=== PATIENT | female | born 1950 | race Caucasian/White ===

== ENCOUNTER 2023-04-08 18:23 | Inpatient (IN) ==
--- NOTE | 2023-04-08 18:30 | ED Triage Note ---
Date of Service April 08, 2023 History of Present Illness This patient was briefly evaluated while in triage. An abbreviated physical exam was performed. This patient is a 73-year-old Female who presents to the ED for evaluation of left arm pain, specifically She notes here hand felt achy and tingling. She couldnt bend L wrist back. She notes L hand and wrist edema as of earlier today. Tingling and pain much worse. Ascends to her elbow. Physical Exam GENERAL: 73 year old female. In no acute distress. SKIN: No lesions or rashes. Edema of L hand noted. HEART: Regular rate and rhythm. LUNGS: Clear to auscultation. NEURO: Alert and oriented. No deficits. MUSCULOSKELETAL: No deformities to inspection of the extremities. L hand pain and edema. PSYCH: Patient is pleasant and answers all questions appropriately. Initial orders for labs and / or imaging were placed and patient was placed in the waiting area until a bed is available. Please see further documentation for the full ED course.
[2023-04-08] MEDS ORDERED: ONDANSETRON INJ 2 MG/ML 2 ML VIAL IV STA (19:02)
--- NOTE | 2023-04-08 19:05 | XRay Report ---
XR hand LT min 3V routine, XR wrist LT min 3V routine CLINICAL HISTORY: L hand and wrist pain and edema COMPARISON STUDY: None. FINDINGS: No acute fracture or dislocation within the left hand or left wrist. There are mild degener ative changes within the left hand and wrist. Diffuse soft tissue swelling within the left hand. A 1 cm lobular focus of calcification along the volar aspect of the left wrist. This is likely chronic. IMPRESSION: 1. No fracture or dislocation within the left hand or left wrist. 2. Soft tissue swelling/edema within the left hand. 3. Mild degenerative changes within the left hand and wrist. 4. A focus of calcification at the volar aspect of the wrist is likely chronic. ACT 112: Negative or not required by law. Electronically signed by: Chavo Weldon M.D. 04/08/2023 7:02 PM
[2023-04-08 19:22] LABS: Basophils # (auto) 0.09 K/uL (0-0.2); Basophils % (auto) 0.7 %; Eosinophils % (auto) 0.8 %; Hematocrit (blood only) 40.1 % (37.0-47.0); Hemoglobin 13.4 g/dl (12.0-16.0); Immature Granulocytes # (auto) 0.05 K/uL (0.01-0.20); Immature Granulocytes % (auto) 0.4 %; Lymphocytes # (auto) 2.67 K/uL (1.2-3.4); Lymphocytes % (auto) 21.1 %; Mean Corpuscular Hemoglobin 30.9 pg (25.0-34.0); Mean Corpuscular Hgb Conc 33.4 g/dL (32.0-36.0); Mean Corpuscular Volume 92.6 fL (80.0-100.0); Mean Platelet Volume 9.5 fL (9.4-12.4); Monocytes # (auto) 1.04 K/uL (0.11-0.59); Monocytes % (auto) 8.2 %; Neutrophils # (auto) 8.72 K/uL (1.40-6.50); Neutrophils % (auto) 68.8 %; Platelet Count 286 K/uL (130-400); RDW Coefficient of Variation 12.5 % (11.5-14.5); RDW Standard Deviation 42.8 fL (36.4-46.3); Red Blood Count 4.33 M/uL (4.20-5.40); White Blood Count 12.67 K/ul (4.8-10.8)
--- NOTE | 2023-04-08 19:23 | Emergency Department Note ---
Impression & Plan Complex regional pain syndrome i of left upper limb, Hand pain, left, Hand swelling ED Provider Note NAME: RITA SALMERON AGE: 73 SEX: F : 1950 ARRIVES VIA: Walk-In INFORMANT: Patient, ED PROVIDER(S): Seun Mariano MD CHIEF COMPLAINT: Hand pain MEDICAL DECISION MAKING: Patient presents due to concern for left hand pain. The patient is right-hand dominant. Next IV was established blood obtained. The patient was ordered IV fentanyl Toradol and methylprednisolone as well as Tylenol and an ice pack. The patient was fairly adamant about today about obtaining a DVT ultrasound of the patient does not have any swelling beyond the left hand. The patient has good radial pulse. Believe DVT to be less likely but a DVT ultrasound had been ordered through triage. The patient's blood work shows a white count of 12 with a normal H&H and platelet count. The patient does not have evidence of cellulitis or abscess. The patient does not have flexor tenosynovitis. Patient did not have improvement in her symptoms with the prior pain medication. There may be a CRPS component the patient was trialed on capsaicin and gabapentin. This did not significantly improve her symptoms. Patient DVT ultrasound is negative. The patient was concerned given her arm pain and about atypical chest pain but the patient has no chest pains or shortness of breath. EKG and troponin were added. EKG nonischemic. Patient still had persistent pain so I did speak the on-call hospital service Dr. Farley and the patient was admitted to the medicine service. Patient will be admitted for further work-up and treatment. Prior /Outside records reviewed: I did review a primary care visit from March 06, 2023. Patient was treated for allergic conjunctivitis and acute rhinosinusitis. Recommended Flonase and Pataday. Differential diagnosis: Cellulitis, abscess, complex regional pain syndrome, gout, pseudogout, tenosynovitis, tendinitis, arthritis among others were considered Diagnostics, as interpreted by me: ECG: Normal sinus rhythm, rate of 72, normal intervals, normal axis no ST elevations, T wave version in V2 Cardiac monitoring: An order was placed for continuous cardiac monitoring. The monitor shows a rate of 74 with sinus rhythm. Patient was placed on pulse oximetry Medical decision rules: Wells score Imaging studies: See below I informally reviewed the patient's hand x-ray which shows no obvious fracture. HPI: Patient presents due to concern for left hand pain. The patient states that she noticed this morning to where she has noticed some increasing pain and associated swelling. The patient denies any chest pain shortness of breath. The patient has had some associated nausea secondary to the pain. The patient does not take anything for symptoms at home. No recent surgeries procedures or hospitalizations. No left upper extremity surgeries. Patient denies any falls or trauma or overuse. The patient is right-hand dominant. PAST MEDICAL HISTORY: See Below PAST SURGICAL HISTORY: See Below SOCIAL HISTORY: See Below HOME MEDICATIONS: See Below ALLERGIES: See Below VITALS: See Below PHYSICAL EXAMINATION: GENERAL: NAD, wearing a mask, non-toxic. EYE EXAM: Normal conjunctiva. PERRL, no anisocoria and EOM's grossly intact w/o pain. NECK: Supple, no nuchal rigidity, no adenopathy, non-tender. No signs of meningismus. FROM of the neck with good chin to chest and neck extension. No stridor. LUNGS: Clear to auscultation. Normal chest wall mechanics. HEART: NSR, no MRG. ABDOMEN: Abdomen soft, non-tender, no masses, no rebound or guarding. BACK: No CVA TTP. SKIN: No rashes and no bruising. UPPER EXTREMITIES: Mild swelling to the left hand and fingers, decreased range of motion secondary to pain, sensate. No swelling more proximally and no significant TTP to the left wrist. LOWER EXTREMITIES: Grossly normal, no edema. NEURO EXAM: A&O x3, cranial nerves II-XII grossly intact, normal speech, moves all 4 extremities. Past Med/Surg History Medical History History of asthma Varicose veins of both lower extremities without ulcer or inflammation Surgical History H/O section 1971, 1975 H/O laparoscopy H/O tubal ligation left leg, 1991 H/O varicose vein ligation Hx of cholecystectomy 2003 Family History Mother Pancreatic cancer Gallbladder disease Kidney disease Father Cardiac disorder Myocardial infarction Brother Malignant neoplasm of brain Denies family history of Ovarian cancer Prostate cancer Breast cancer Colorectal cancer Social History Smoking Status: Never smoker Second Hand Exposure: No; Do You Dip or Chew Tobacco: No; Hx Alcohol Use: Yes Alcohol type: wine Alcohol Intake Frequency: Monthly or Less Alcohol Intake Frequency Comment: social Hx Substance Use: No Preferred Language: German Communication Ability: Effective Visual Impairment: Limited Hearing Ability: Normal 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 Off Required: No marital status: Current Living Situation: Family Current Living Situation Comment: daughter current occupational status: retired current occupation: previously worked in [employer] How many Children do You have: 2 Feels Safe at Home: Yes Childhood Exposure to Second-Hand Smoke: Yes caffeine: Yes (coffee and sometimes tea ) Dental Care, Regularly: Yes Physical Activity Frequency: 5-6 Times per Week Seatbelt Use: always Sunscreen Use: Yes Allergies Allergies Allergy/AdvReac Type Severity Reaction Status Date / Time animal dander Allergy Verified 03/06/23 11:46 codeine Allergy Verified 03/06/23 11:46 house dust Allergy Verified 03/06/23 11:46 mold Allergy Verified 03/06/23 11:46 tree and shrub pollen Allergy Verified 03/06/23 11:46 Home Meds Home Medications Medication Instructions Recorded Confirmed loratadine 10 mg capsule 10 mg PO DAILY PRN Allergy Symptoms 04/06/19 04/08/23 cranberry 500 mg capsule 500 mg PO DAILY 05/04/21 04/08/23 omega-3 fatty acids 500 mg capsule 500 mg PO DAILY 09/05/22 04/08/23 atorvastatin 10 mg tablet 10 mg PO DAILY 04/08/23 04/08/23 multivitamin (Multiple Vitamins 1 tab PO DAILY 04/08/23 04/08/23 tablet) Previous Rx's Medication Instructions Recorded lisinopril 20 mg tablet 20 mg PO DAILY #90 tabs 04/09/22 albuterol sulfate 90 mcg/actuation 2 puff inhalation Q6H PRN 09/05/22 aerosol inhaler shortness of breath or wheezing #6.7 grams fluticasone propionate 50 2 spray intranasal DAILY #16 grams 02/27/23 mcg/actuation nasal spray,suspension (Flonase Allergy Relief) olopatadine 0.2 % eye drops 1 drp ophthalmic (eye) QAM #2.5 mL 02/27/23 (Pataday Once Daily Relief) Results & Data (ED) Vital Signs Vital Signs - 24 hr 04/08/23 18:25 04/08/23 22:49 04/08/23 20:23 Temperature 36.4 C L Temperature Source Temporal Artery Scan Pulse Rate 86 77 Pulse Rate [Apical] 75 Respiratory Rate 15 18 Respiratory Effort / Characteristics Respiratory Depth Normal Respiratory Pattern Blood Pressure 206/136 H Blood Pressure [Right Arm] 181/95 H Blood Pressure Mean 159 Blood Pressure Mean [Right Arm] 123 Blood Pressure Position [Right Arm] Pulse Oximetry 95 94 Oxygen Delivery Method Room Air Room Air Sepsis Recent Fever Within 48 Hours No Sepsis New/Unexplained Change in Mental Status No Sepsis Action Taken by Nursing No Action Required 04/08/23 23:27 04/09/23 00:23 Temperature Temperature Source Pulse Rate 77 Pulse Rate [Apical] 79 Respiratory Rate 20 Respiratory Effort / Characteristics Non-Labored Spontaneous Respiratory Depth Normal Respiratory Pattern Regular Blood Pressure Blood Pressure [Right Arm] 180/99 H Blood Pressure Mean Blood Pressure Mean [Right Arm] 126 Blood Pressure Position [Right Arm] Semi-fowlers Pulse Oximetry 96 Oxygen Delivery Method Room Air Sepsis Recent Fever Within 48 Hours Sepsis New/Unexplained Change in Mental Status Sepsis Action Taken by Snf Medications Current Medication List: was personally reviewed by me Laboratory Data Attestation: I reviewed the patient's lab results. 04/08/23 Unknown 04/08/23 Unknown Lab Results 04/08/23 04/08/23 04/08/23 Range/Units Unknown Unknown Unknown WBC 12.67 H (4.8-10.8) K/ul RBC 4.33 (4.20-5.40) M/uL Hgb 13.4 (12.0-16.0) g/dl Hct 40.1 (37.0-47.0) % MCV 92.6 (80.0-100.0) fL MCH 30.9 (25.0-34.0) pg MCHC 33.4 (32.0-36.0) g/dL RDW Std Deviation 42.8 (36.4-46.3) fL RDW Coeff of Yaw 12.5 (11.5-14.5) % Plt Count 286 (130-400) K/uL MPV 9.5 (9.4-12.4) fL Immature Gran % (Auto) 0.4 % Neut % (Auto) 68.8 % Lymph % (Auto) 21.1 % [place] % (Auto) 8.2 % Eos % (Auto) 0.8 % Baso % (Auto) 0.7 % Neut # (Auto) 8.72 H (1.40-6.50) K/uL Lymph # (Auto) 2.67 (1.2-3.4) K/uL [place] # (Auto) 1.04 H (0.11-0.59) K/uL Eos # (Auto) 0.10 (0-0.50) K/uL Baso # (Auto) 0.09 (0-0.2) K/uL Immature Gran # (Auto) 0.05 (0.01-0.20) K/uL PT 10.8 (9.0-12.0) Seconds INR 1.0 (0.9-1.1) APTT 25.3 (21.0-31.0) Seconds PTT Ratio 0.9 Sodium 138 (136-145) mmol/L Potassium 3.8 (3.5-5.1) mmol/L Chloride 105 (98-107) mmol/L Carbon Dioxide 25 (21-32) mmol/L Anion Gap 8 (3-11) BUN 29 H (6-23) mg/dl Creatinine 1.11 (0.6-1.2) mg/dl Est Cr Clr Drug Dosing 47.9 ml/min Est GFR ( Amer) 57.1 ml/min Est GFR (Non-Af Amer) 49.2 ml/min BUN/Creatinine Ratio 26.1 H (10-20) Glucose 179 H (70-99(Fasting)) mg/dl Calcium 9.1 (8.6-10.3) mg/dl Total Bilirubin 0.4 (0.2-1.0) mg/dl AST 23 (13-39) U/L ALT 21 (7-52) U/L Alkaline Phosphatase 63 (34-104) U/L Troponin I High Sens 6.1 (0-14) pg/ml Total Protein 7.1 (6.0-8.3) gm/dl Albumin 4.0 (3.4-5.0) gm/dl Globulin 3.1 (2.5-4.0) gm/dl Albumin/Globulin Ratio 1.3 (0.9-2) SARS-CoV-2, RNA, NAAT (NEGATIVE) 04/09/23 Range/Units 00:07 WBC (4.8-10.8) K/ul RBC (4.20-5.40) M/uL Hgb (12.0-16.0) g/dl Hct (37.0-47.0) % MCV (80.0-100.0) fL MCH (25.0-34.0) pg MCHC (32.0-36.0) g/dL RDW Std Deviation (36.4-46.3) fL RDW Coeff of Yaw (11.5-14.5) % Plt Count (130-400) K/uL MPV (9.4-12.4) fL Immature Gran % (Auto) % Neut % (Auto) % Lymph % (Auto) % Granville % (Auto) % Eos % (Auto) % Baso % (Auto) % Neut # (Auto) (1.40-6.50) K/uL Lymph # (Auto) (1.2-3.4) K/uL [place]ville # (Auto) (0.11-0.59) K/uL Eos # (Auto) (0-0.50) K/uL Baso # (Auto) (0-0.2) K/uL Immature Gran # (Auto) (0.01-0.20) K/uL PT (9.0-12.0) Seconds INR (0.9-1.1) APTT (21.0-31.0) Seconds PTT Ratio Sodium (136-145) mmol/L Potassium (3.5-5.1) mmol/L Chloride (98-107) mmol/L Carbon Dioxide (21-32) mmol/L Anion Gap (3-11) BUN (6-23) mg/dl Creatinine (0.6-1.2) mg/dl Est Cr Clr Drug Dosing ml/min Est GFR ( Amer) ml/min Est GFR (Non-Af Amer) ml/min BUN/Creatinine Ratio (10-20) Glucose (70-99(Fasting)) mg/dl Calcium (8.6-10.3) mg/dl Total Bilirubin (0.2-1.0) mg/dl AST (13-39) U/L ALT (7-52) U/L Alkaline Phosphatase (34-104) U/L Troponin I High Sens (0-14) pg/ml Total Protein (6.0-8.3) gm/dl Albumin (3.4-5.0) gm/dl Globulin (2.5-4.0) gm/dl Albumin/Globulin Ratio (0.9-2) SARS-CoV-2, RNA, NAAT NEGATIVE (NEGATIVE) Administered Medications Discontinued Medications Acetaminophen (Acetaminophen 500 Mg Tab) 1,000 mg PO NOW STA Stop: 04/08/23 19:31 Last Admin: 04/08/23 19:49 Dose: 1,000 mg Documented By: VADIM Capsaicin (Capsaicin Cr 0.075% 60 Gm Tube) 1 appln EXT NOW STA Stop: 04/08/23 21:00 Last Admin: 04/08/23 21:07 Dose: 1 appln Documented By: VADIM Fentanyl Citrate (Fentanyl Citrate Pf 100 Mcg/2 Ml Vial) 50 mcg IV NOW STA Stop: 04/08/23 19:31 Last Admin: 04/08/23 20:17 Dose: 50 mcg Documented By: TESSA Fentanyl Citrate (Fentanyl Citrate Pf 100 Mcg/2 Ml Vial) 50 mcg IV NOW STA Stop: 04/08/23 23:55 Last Admin: 04/09/23 00:03 Dose: 50 mcg Documented By: Gabapentin (Gabapentin 100 Mg Cap) 100 mg PO NOW STA Stop: 04/08/23 21:23 Last Admin: 04/08/23 22:08 Dose: 100 mg Documented By: VADIM Ketorolac Tromethamine (Ketorolac Tromethamine 15 Mg/Ml Vial) 10 mg IV NOW ONE Stop: 04/08/23 19:34 Last Admin: 04/08/23 19:50 Dose: 10 mg Documented By: VADIM Methylprednisolone (Methylprednisolone 125 Mg/2 Ml Vial) 125 mg IV NOW STA Stop: 04/08/23 19:31 Last Admin: 04/08/23 19:51 Dose: 125 mg Documented By: VAIDM Ondansetron HCl (Ondansetron Inj 2 Mg/Ml 2 Ml Vial) 4 mg IV NOW STA Stop: 04/08/23 19:03 Last Admin: 04/08/23 19:04 Dose: 4 mg Documented By: BRYCE Imaging Data Radiologist's Impression: Hand X-Ray 04/08/23 18:30 XR hand LT min 3V routine, XR wrist LT min 3V routine CLINICAL HISTORY: L hand and wrist pain and edema COMPARISON STUDY: None. FINDINGS: No acute fracture or dislocation within the left hand or left wrist. There are mild degenerative changes within the left hand and wrist. Diffuse soft tissue swelling within the left hand. A 1 cm lobular focus of calcification along the volar aspect of the left wrist. This is likely chronic. IMPRESSION: 1. No fracture or dislocation within the left hand or left wrist. 2. Soft tissue swelling/edema within the left hand. 3. Mild degenerative changes within the left hand and wrist. 4. A focus of calcification at the volar aspect of the wrist is likely chronic. ACT 112: Negative or not required by law. Electronically signed by: Chavo Weldon M.D. 04/08/2023 7:02 PM Wrist X-Ray 04/08/23 18:30 XR hand LT min 3V routine, XR wrist LT min 3V routine CLINICAL HISTORY: L hand and wrist pain and edema COMPARISON STUDY: None. FINDINGS: No acute fracture or dislocation within the left hand or left wrist. There are mild degenerative changes within the left hand and wrist. Diffuse soft tissue swelling within the left hand. A 1 cm lobular focus of calcification along the volar aspect of the left wrist. This is likely chronic. IMPRESSION: 1. No fracture or dislocation within the left hand or left wrist. 2. Soft tissue swelling/edema within the left hand. 3. Mild degenerative changes within the left hand and wrist. 4. A focus of calcification at the volar aspect of the wrist is likely chronic. ACT 112: Negative or not required by law. Electronically signed by: Chavo Weldon M.D. 04/08/2023 7:02 PM Extremity Venous Study 04/08/23 18:31 Exam(s): US VENOUS LEFT UPPER EXTREMITY EXAM: US Duplex Left Upper Extremity Veins CLINICAL HISTORY: Reason for exam: L hand and arm pain and edema. TECHNIQUE: Real-time duplex ultrasound scan of the left upper extremity veins integrating B-mode two-dimensional vascular structure, Doppler spectral analysis, color flow Doppler imaging and compression. COMPARISON: No relevant prior studies available. FINDINGS: Deep veins: No DVT in the internal jugular, subclavian, axillary, or brachial veins. Superficial veins: No thrombus in the visualized basilic and cephalic veins. Soft tissues: No acute findings. IMPRESSION: No DVT in the left upper extremity. Electronically signed by: Jeremiah Barker MD 04/08/23 23:03 PM Discharge Plan Visit Data Chief Complaint: Arm Pain Stated Complaint: LEFT ARM PAIN,SWELLING ED Provider: Seun Mariano Discharge Problem: Complex regional pain syndrome i of left upper limb, Hand pain, left, Hand swelling Forms Stand Alone Forms: My [facility] Prescriptions Prescriptions: No Action lisinopril 20 mg tablet 20 mg PO DAILY Qty: 90 3RF olopatadine [Pataday Once Daily Relief] 0.2 % drops 1 drp ophthalmic (eye) QAM Qty: 2.5 2RF fluticasone propionate [Flonase Allergy Relief] 50 mcg/actuation spray,suspension 2 spray intranasal DAILY Qty: 16 3RF Rx Instructions: administer into each nostril omega-3 fatty acids 500 mg capsule 500 mg PO DAILY albuterol sulfate 90 mcg/actuation HFA aerosol inhaler 2 puff inhalation Q6H PRN (Reason: shortness of breath or wheezing) Qty: 6.7 1RF loratadine 10 mg capsule 10 mg PO DAILY PRN (Reason: Allergy Symptoms) cranberry 500 mg capsule 500 mg PO DAILY Rx Instructions: administer with meals multivitamin [Multiple Vitamins] Tablet 1 tab PO DAILY atorvastatin 10 mg tablet 10 mg PO DAILY Referrals Referrals: Leonard Pollard DO [Primary Care Provider] -
[2023-04-08] MEDS ORDERED: methylPREDNISolone 125 MG/2 ML VIAL IV STA (19:30)
[2023-04-08] MEDS ORDERED: ACETAMINOPHEN 500 MG TAB PO STA (19:30)
[2023-04-08] MEDS ORDERED: fentaNYL citrate PF 100 MCG/2 ML VIAL IV STA ×2 (19:30→23:54)
[2023-04-08] MEDS ORDERED: KETOROLAC TROMETHAMINE 15 MG/ML VIAL IV ONE (19:33)
[2023-04-08 19:37] LABS: Albumin Globulin Ratio 1.3 (0.9-2); BUN Creatinine Ratio 26.1 (10-20); Bilirubin,Total 0.4 mg/dl (0.2-1.0); Calcium 9.1 mg/dl (8.6-10.3); Creatinine Clr Calc Pharmacy 47.9 ml/min; Est GFR (African American) 57.1 ml/min; Est GFR (Non-African American) 49.2 ml/min; Globulin 3.1 gm/dl (2.5-4.0); Potassium 3.8 mmol/L (3.5-5.1); Total Protein 7.1 gm/dl (6.0-8.3)
[2023-04-08 19:46] LABS: Partial Thromboplastin Ratio 0.9; Partial Thromboplastin Time 25.3 Seconds (21.0-31.0); Prothrombin Time 10.8 Seconds (9.0-12.0)
[2023-04-08] MEDS ORDERED: CAPSAICIN CR 0.075% 60 GM TUBE EXT STA (20:59)
[2023-04-08] MEDS ORDERED: GABAPENTIN 600 MG TAB PO STA (20:59)
[2023-04-08] MEDS ORDERED: GABAPENTIN 100 MG CAP PO STA (21:22)
--- NOTE | 2023-04-08 23:03 | Ultrasound Report ---
Exam(s): US VENOUS LEFT UPPER EXTREMITY EXAM: US Duplex Left Upper Extremity Veins CLINICAL HISTORY: Reason for exam: L hand and arm pain and edema. TECHNIQUE: Real-time duplex ultrasound scan of the left upper extremity veins integrating B-mode two-dimensional vascular structure, Doppler spectral analysis, color flow Doppler imaging and compression. COMPARISON: No relevant prior studies available. FINDINGS: Deep veins: No DVT in the internal jugular, subclavian, axillary, or brachial veins. Superficial veins: No thrombus in the visualized basilic and cephalic veins. Soft tissues: No acute findings. IMPRESSION: No DVT in the left upper extremity. Electronically signed by: Jeremiah Barker MD 04/08/23 23:03 PM
[2023-04-08 23:17] LABS: Troponin I High Sensitivity 6.1 pg/ml (0-14)
--- NOTE | 2023-04-08 23:59 | History & Physical Report ---
Date of Service April 08, 2023 Assessment & Plan (1) Hand pain, left: Plan: 73yo Female with PMH HTN HLD here for left hand pain and swelling. Left hand swelling -concern for possible deep tissue infection -WBC 12.67 -XR left hand/wrist: No fracture or dislocation within the left hand or left wrist. Soft tissue swelling/edema within the left hand. Mild degenerative changes within the left hand and wrist. A focus of calcification at the volar aspect of the wrist is likely chronic. -Left hand venous doppler: No DVT in the left upper extremity. -admit to med/surg -ordered rocephin 2g daily -consult placed to orthopaedics -ordered left hand MRI -ordered TDAP vaccine -ordered CRP, ESR -ordered uric acid -ordered blood culture -PRN tylenol, toradol for pain control -trend cbc HTN, HLD -continue atorvastatin -continue lisinopril FENa: NPO Code Status: Full DVT PPX: ambulatory Dispo: med/surg Willa Spain D.O. PGY 3, FCM (2) Hand swelling: (3) Hypertension: (4) Dyslipidemia: History of Present Illness Chief Complaint: Left hand pain Primary Care Provider: Leonard Pollard, 73yo Female with PMH HTN HLD here for left hand pain and swelling. Patient noted this morning her left hand ached, noted some swelling in her fingers notedly fingers 4 and 5, thought she had slept wrong was still able to move her fingers and perform daily tasks. Patient noted as the day went on and she did more activity, she developed more hand pain and swelling of her entire hand stopping at the wrist, she took her rings off her left hand to avoid having them stuck on her hand. Patient began noting tingling/numbness on the tips of her left fingers. 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 She went home used ice and ibuprofen, states nothing helped. She went to dinner with family, however continued to have throbbing swelling pain in left hand, developed nausea and light headedness felt faint, family brought her to ED. In ED she was given fentanyl 100mcg ketorolac 10mg tylenol 1000mg gabapentin 100mg capsaicin cream and methylprednisolone 125mcg. Patient states her left hand is still swollen, pain now traveling up her left arm, has increased redness on dorsal side of hand over 4th and 5th metacarpals, has tenderness to palpation across left hand but moreso over 5th PP. Patient states she was most worried about having a heart attack, her father had cardiac conditions attributed to advanced age and poor lifestyle. Patient states she is right handed. Denies any recent noted cuts or scraps, however she does do needlework and other hobbies, family notes she is not good at using a knife in the kitchen. Denies recent animal bites, does have a dog that licks her hand. Patient denies any fever SOB pain elsewhere. Uncertain when her last TDAP dose was. Allergies Allergy/AdvReac Type Severity Reaction Status Date / Time animal dander Allergy Verified 03/06/23 11:46 codeine Allergy Verified 03/06/23 11:46 house dust Allergy Verified 03/06/23 11:46 mold Allergy Verified 03/06/23 11:46 tree and shrub pollen Allergy Verified 03/06/23 11:46 Home Medications Medication Instructions Recorded Confirmed Type loratadine 10 mg capsule 10 mg PO DAILY PRN Allergy Symptoms 04/06/19 04/08/23 History cranberry 500 mg capsule 500 mg PO DAILY 05/04/21 04/08/23 History lisinopril 20 mg tablet 20 mg PO DAILY #90 tabs 04/09/22 04/08/23 Rx albuterol sulfate 90 mcg/actuation 2 puff inhalation Q6H PRN 09/05/22 04/08/23 Rx aerosol inhaler shortness of breath or wheezing #6.7 grams omega-3 fatty acids 500 mg capsule 500 mg PO DAILY 09/05/22 04/08/23 History fluticasone propionate 50 2 spray intranasal DAILY #16 grams 02/27/23 04/08/23 Rx mcg/actuation nasal spray,suspension (Flonase Allergy Relief) olopatadine 0.2 % eye drops 1 drp ophthalmic (eye) QAM #2.5 mL 02/27/23 04/08/23 Rx (Pataday Once Daily Relief) atorvastatin 10 mg tablet 10 mg PO DAILY 04/08/23 04/08/23 History multivitamin (Multiple Vitamins 1 tab PO DAILY 04/08/23 04/08/23 History tablet) Past Med/Surg History Medical History History of asthma Varicose veins of both lower extremities without ulcer or inflammation Surgical History H/O section 1971, 1975 H/O laparoscopy H/O tubal ligation left leg, 1991 H/O varicose vein ligation Hx of cholecystectomy 2003 Family History Mother Pancreatic cancer Gallbladder disease Kidney disease Father Cardiac disorder Myocardial infarction Brother Malignant neoplasm of brain Denies family history of Ovarian cancer Prostate cancer Breast cancer Colorectal cancer Social History Smoking Status: Never smoker Second Hand Exposure: No; Do You Dip or Chew Tobacco: No; Hx Alcohol Use: Yes Alcohol type: wine Alcohol Intake Frequency: Monthly or Less Alcohol Intake Frequency Comment: social Hx Substance Use: No Preferred Language: Turkish Communication Ability: Effective Visual Impairment: Limited Hearing Ability: Normal Telephone Engineer Required: No marital status: Current Living Situation: Family Current Living Situation Comment: daughter current occupational status: retired 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, [employer] How many Children do You have: 2 Feels Safe at Home: Yes Childhood Exposure to Second-Hand Smoke: Yes caffeine: Yes (coffee and sometimes tea ) Dental Care, Regularly: Yes Physical Activity Frequency: 5-6 Times per Week Seatbelt Use: always Sunscreen Use: Yes Physical Exam Constitutional: well developed, well nourished, cooperative and comfortable Eyes: PERRL, conjunctivae normal, anicteric sclerae ENMT: external ear and nose normal, oropharynx normal Neck: trachea midline, no thyromegaly Respiratory: normal respiratory effort, lungs clear to auscultation Cardiovascular: Rate/Rhythm: regular rate and regular rhythm Musculoskeletal: Right hand 5/5 strength in whirley operator, finger extension Left hand unable to whirley operator, finger extension 4/5 Skin: Noted swelling of left hand from wrist up to fingers, noted increased erythema on dorsal side hand 4th and 5th digit metacarpals. Increased pain on palpation to left 5th finger PP. No palpable fluid noted Results & Data Results & Data Vital Signs (Past 12 Hours) Vital Signs Temp Pulse Pulse Resp BP BP Pulse Ox 04/08/23 23:27 79 20 180/99 H 96 04/08/23 20:23 77 04/08/23 22:49 75 18 181/95 H 94 04/08/23 18:25 36.4 C L 86 15 206/136 H 95 O2 Del Method 04/08/23 23:27 Room Air 04/08/23 20:23 04/08/23 22:49 Room Air 04/08/23 18:25 Room Air Supervising Physician Co-Signing Physician Notes Patient seen and examined, chart reviewed, case discussed with Dr. Spain and I agree with the assessment and plan as above Resident Activity Tracking Resident Involvement: Resident Care Provided Care Provided: Adult Hospital Medicine (2) Hand swelling Laterality: left Qualified Code(s): M79.89 - Other specified soft tissue disorders
[2023-04-09] MEDS ORDERED: KETOROLAC TROMETHAMINE 15 MG/ML VIAL IV PRN (00:20)
[2023-04-09] MEDS ORDERED: cefTRIAXone SODIUM 2,000 MG/70 ML BAG IV STA (00:20)
[2023-04-09] MEDS ORDERED: DIPHTHERIA/TETANUS/PERTUSSIS Vaccine (Tdap, Age 7+yrs) 0.5mL SYR/VL IM ONE (00:27)
[2023-04-09 01:38] LABS: C Reactive Protein 0.8 mg/dl (0-0.5); Uric Acid 5.6 mg/dl (2.6-7.2)
--- NOTE | 2023-04-09 02:24 | Billing Data ---
Date of Service April 08, 2023 Coding Level of Care Code 02042 INT INP/OBS CARE
[2023-04-09] MEDS ORDERED: ACETAMINOPHEN 325 MG TAB PO PRN (02:27)
--- NOTE | 2023-04-09 06:26 | Magnetic Resonance Report ---
Exam(s): MRI LEFT HAND Without Contrast EXAM: MR Left Upper Extremity Without Intravenous Contrast, Hand CLINICAL HISTORY: Reason for exam: Left hand swelling. TECHNIQUE: Multiplanar magnetic resonance images of the left hand without intravenous contrast. COMPARISON: No relevant prior studies available. FINDINGS: There is extensive soft tissue edema in the hand. This is most pronounced along the ulnar aspect of the hand in the region of the distal fourth and fifth metatarsals and the proximal fourth and fifth digits. There is also diffuse thickening and increased T2 signal involving the flexor tendons of the hand distal to the carpal tunnel. No significant fluid is seen surrounding the tendons. The tendons themselves are intact without significant enlargement. No focal fluid collection is seen to indicate abscess. No bone marrow signal abnormality is evident. Joint capsules are intact. There is no joint effusion. IMPRESSION: Diffuse soft tissue inflammation, most pronounced along the ulnar aspect of the hand. This is associated with diffuse tenosynovitis of the flexor tendons distal to the level of the carpal tunnel. No evidence of focal soft tissue abscess. No evidence of osteomyelitis. Electronically signed by: Bong Almendarez MD 04/09/23 06:25 AM
[2023-04-09] MEDS ORDERED: VANCOMYCIN CONSULT ACTIVE PRN (06:54)
[2023-04-09] MEDS ORDERED: VANCOMYCIN HCL 1,000 MG in SODIUM CHLORIDE 0.9% 250 ML IV SCH (07:00)
[2023-04-09] MEDS ORDERED: VANCOMYCIN HCL 1,500 MG in SODIUM CHLORIDE 0.9% 500 ML IV ONE (07:15)
[2023-04-09] MEDS: lisinopril 20 MG TAB PO SCH (08:41)
[2023-04-09] MEDS ORDERED: ATORVASTATIN 10 MG TAB PO SCH ×2 (09:00→21:00)
--- NOTE | 2023-04-09 09:58 | Orthopedic Consultation ---
Date of Consultation April 09, 2023 Assessment & Plan (1) Hand pain, left: At this point her hand seems to be improving clinically, she states less pain than yesterday and her range of motion is improving per the patient. She is currently on IV Vanco, MRI as well as labs were reviewed with patient as well as with Dr. Purdy, at this point we will continue with observation, cont with IV Abx, she can have regular diet today and we will keep n.p.o. this evening for reassessment in the morning discussed if her symptoms worsen would require I&D, but mri is not showing any fluid accumulation along the tendon sheath. cont to elevate, gentle ROM as tolerated of her digits. will reassess tomorrow am (2) Hand swelling: History of Present Illness Reason for Consultation: left hand pain/swelling Attending Physician: Bong Garcia MD History of Present Illness Krystle is a pleasant 73 year old female that we have been consulted on regarding left hand pain/swelling. she is right hand dominant, states was otherwise doing well Saturday when she went to sleep, woke up Saturday morning and her left hand felt like she had "slept on it wrong". denies any previous issues with it, denies previous trauma or surgery to this hand. most of her swelling was along the ulnar aspect of the hand at that time. she states as the day went on, her pain and swelling had increased and at that time was having pain moving her wrist. she also had c/o intermittent "numbness" in her hand but this has resolved. at that point, she was brought to the ER for further evaluation. she underwent US, which was negative for DVT. she was admitted and started on Vancomycin as well as underwent MRI evalution. Allergies Allergy/AdvReac Type Severity Reaction Status Date / Time animal dander Allergy Verified 03/06/23 11:46 codeine Allergy Verified 03/06/23 11:46 house dust Allergy Verified 03/06/23 11:46 mold Allergy Verified 03/06/23 11:46 tree and shrub pollen Allergy Verified 03/06/23 11:46 Home Medications Medication Instructions Recorded Confirmed Type loratadine 10 mg capsule 10 mg PO DAILY PRN Allergy Symptoms 04/06/19 04/08/23 History cranberry 500 mg capsule 500 mg PO DAILY 05/04/21 04/08/23 History lisinopril 20 mg tablet 20 mg PO DAILY #90 tabs 04/09/22 04/08/23 Rx albuterol sulfate 90 mcg/actuation 2 puff inhalation Q6H PRN 09/05/22 04/08/23 Rx aerosol inhaler shortness of breath or wheezing #6.7 grams omega-3 fatty acids 500 mg capsule 500 mg PO DAILY 09/05/22 04/08/23 History fluticasone propionate 50 2 spray intranasal DAILY #16 grams 02/27/23 04/08/23 Rx mcg/actuation nasal spray,suspension (Flonase Allergy Relief) olopatadine 0.2 % eye drops 1 drp ophthalmic (eye) QAM #2.5 mL 02/27/23 04/08/23 Rx (Pataday Once Daily Relief) atorvastatin 10 mg tablet 10 mg PO DAILY 04/08/23 04/08/23 History multivitamin (Multiple Vitamins 1 tab PO DAILY 04/08/23 04/08/23 History tablet) Patient History Medical History History of asthma Varicose veins of both lower extremities without ulcer or inflammation Surgical History H/O section 1975 H/O laparoscopy H/O tubal ligation left leg, 1991 H/O varicose vein ligation Hx of cholecystectomy 2003 Family History Mother Pancreatic cancer Gallbladder disease Kidney disease Father Cardiac disorder Myocardial infarction Brother Malignant neoplasm of brain Denies family history of Ovarian cancer Prostate cancer Breast cancer Colorectal cancer Social History Smoking Status: Never smoker Second Hand Exposure: No; Do You Dip or Chew Tobacco: No; Hx Alcohol Use: Yes Alcohol type: wine Alcohol Intake Frequency: Monthly or Less Alcohol Intake Frequency Comment: social Hx Substance Use: No Preferred Language: Puerto Rican Communication Ability: Effective Visual Impairment: Limited Hearing Ability: Normal Clinical Sciences Professor Required: No Beliefs That Will Affect Care: None marital status: Current Living Situation: Family Current Living Situation Comment: lives in house with daughter current occupational status: retired current occupation: previously worked in [employer], [employer] How many Children do You have: 2 Feels Safe at Home: Yes Childhood Exposure to Second-Hand Smoke: Yes caffeine: Yes (coffee and sometimes tea ) Dental Care, Regularly: Yes Physical Activity Frequency: 5-6 Times per Week Seatbelt Use: always Sunscreen Use: Yes Assistive Devices: Glasses Review of Systems Constitutional: no fever and no chills Respiratory: no cough and no dyspnea Cardiovascular: no chest pain, no dyspnea and no orthopnea Gastrointestinal: no abdominal pain, no nausea and no vomiting Physical Exam Physical Exam: Vital Signs Temp Pulse Pulse Pulse Resp BP BP 04/09/23 07:26 36.4 C L 72 17 137/61 04/09/23 02:30 36.6 C 69 18 04/09/23 02:01 04/09/23 00:23 77 04/08/23 23:27 79 20 04/08/23 20:23 77 04/08/23 22:49 75 18 04/08/23 18:25 36.4 C L 86 15 206/136 H BP Pulse Ox O2 Del Method 04/09/23 07:26 95 Room Air 04/09/23 02:30 160/90 H 97 Room Air 04/09/23 02:01 Room Air 04/09/23 00:23 04/08/23 23:27 180/99 H 96 Room Air 04/08/23 20:23 04/08/23 22:49 181/95 H 94 Room Air 04/08/23 18:25 95 Room Air Intake and Output 04/08/23 04/09/23 04/09/23 22:59 06:59 14:59 Intake Total 70 / 70 Balance 70 / 70 Intake: IV 70 / 70 cefTRIAXone SO DIUM 2,000 mg In 70 / 70 70 ml @ 100 ml s/hr IV NOW STA Rx#:[id number] Other: Weight 79.2 kg 77.564 kg Weight Measureme nt Method Built in Bedscale Standing Scale Constitutional: WD/WN, vitals as above Musculoskeletal: Left Hand: erythema and swelling noted mostly over 4th and 5th MCP joints extending into 4th and 5th digits. tender along flexor tendon 4th/5th digits, none along 2nd or 3rd digits. she does have mild pain with passive extension of the 4th and 5th digits. no tenderness in the palm however, along her flexor tendons. no pain with passive/active ROM of the left wrist, no tenderness into the forearm. Radial pulse +2, sensation intact distally. no pain along the dorsum of her hand. Results & Data Vital Signs (Past 12 Hours) Vital Signs Temp Pulse Pulse Pulse Resp BP BP 04/09/23 07:26 36.4 C L 72 17 137/61 04/09/23 02:30 36.6 C 69 18 160/90 H 04/09/23 02:01 04/09/23 00:23 77 04/08/23 23:27 79 20 180/99 H 04/08/23 22:49 75 18 181/95 H Pulse Ox O2 Del Method 04/09/23 07:26 95 Room Air 04/09/23 02:30 97 Room Air 04/09/23 02:01 Room Air 04/09/23 00:23 04/08/23 23:27 96 Room Air 04/08/23 22:49 94 Room Air Laboratory Results Laboratory Results WBC 12.67 K/ul (4.8-10.8) H 04/08/23 Unknown RBC 4.33 M/uL (4.20-5.40) 04/08/23 Unknown Hgb 13.4 g/dl (12.0-16.0) 04/08/23 Unknown Hct 40.1 % (37.0-47.0) 04/08/23 Unknown MCV 92.6 fL (80.0-100.0) 04/08/23 Unknown MCH 30.9 pg (25.0-34.0) 04/08/23 Unknown MCHC 33.4 g/dL (32.0-36.0) 04/08/23 Unknown RDW Std Deviation 42.8 fL (36.4-46.3) 04/08/23 Unknown RDW Coeff of Yaw 12.5 % (11.5-14.5) 04/08/23 Unknown Plt Count 286 K/uL (130-400) 04/08/23 Unknown MPV 9.5 fL (9.4-12.4) 04/08/23 Unknown Immature Gran % (Auto) 0.4 % 04/08/23 Unknown Neut % (Auto) 68.8 % 04/08/23 Unknown Lymph % (Auto) 21.1 % 04/08/23 Unknown [place] % (Auto) 8.2 % 04/08/23 Unknown Eos % (Auto) 0.8 % 04/08/23 Unknown Baso % (Auto) 0.7 % 04/08/23 Unknown Neut # (Auto) 8.72 K/uL (1.40-6.50) H 04/08/23 Unknown Lymph # (Auto) 2.67 K/uL (1.2-3.4) 04/08/23 Unknown [place] # (Auto) 1.04 K/uL (0.11-0.59) H 04/08/23 Unknown Eos # (Auto) 0.10 K/uL (0-0.50) 04/08/23 Unknown Baso # (Auto) 0.09 K/uL (0-0.2) 04/08/23 Unknown Immature Gran # (Auto) 0.05 K/uL (0.01-0.20) 04/08/23 Unknown ESR 11 mm/hr (0-30) 04/09/23 01:05 PT 10.8 Seconds (9.0-12.0) 04/08/23 Unknown INR 1.0 (0.9-1.1) 04/08/23 Unknown APTT 25.3 Seconds (21.0-31.0) 04/08/23 Unknown PTT Ratio 0.9 04/08/23 Unknown Sodium 138 mmol/L (136-145) 04/08/23 Unknown Potassium 3.8 mmol/L (3.5-5.1) 04/08/23 Unknown Chloride 105 mmol/L (98-107) 04/08/23 Unknown Carbon Dioxide 25 mmol/L (21-32) 04/08/23 Unknown Anion Gap 8 (3-11) 04/08/23 Unknown BUN 29 mg/dl (6-23) H 04/08/23 Unknown Creatinine 1.11 mg/dl (0.6-1.2) 04/08/23 Unknown Est Cr Clr Drug Dosing 47.9 ml/min 04/08/23 Unknown Est GFR ( Amer) 57.1 ml/min 04/08/23 Unknown Est GFR (Non-Af Amer) 49.2 ml/min 04/08/23 Unknown BUN/Creatinine Ratio 26.1 (10-20) H 04/08/23 Unknown Glucose 179 mg/dl (70-99(Fasting)) H 04/08/23 Unknown Uric Acid 5.6 mg/dl (2.6-7.2) 04/09/23 01:05 Calcium 9.1 mg/dl (8.6-10.3) 04/08/23 Unknown Total Bilirubin 0.4 mg/dl (0.2-1.0) 04/08/23 Unknown AST 23 U/L (13-39) 04/08/23 Unknown ALT 21 U/L (7-52) 04/08/23 Unknown Alkaline Phosphatase 63 U/L (34-104) 04/08/23 Unknown Troponin I High Sens 6.1 pg/ml (0-14) 04/08/23 Unknown C-Reactive Protein 0.80 mg/dl (0-0.5) H 04/09/23 01:05 Total Protein 7.1 gm/dl (6.0-8.3) 04/08/23 Unknown Albumin 4.0 gm/dl (3.4-5.0) 04/08/23 Unknown Globulin 3.1 gm/dl (2.5-4.0) 04/08/23 Unknown Albumin/Globulin Ratio 1.3 (0.9-2) 04/08/23 Unknown SARS-CoV-2, RNA, NAAT NEGATIVE (NEGATIVE) 04/09/23 00:07 Diagnostic Findings Laboratory Results WBC 12.67 K/ul (4.8-10.8) H 04/08/23 Unknown RBC 4.33 M/uL (4.20-5.40) 04/08/23 Unknown Hgb 13.4 g/dl (12.0-16.0) 04/08/23 Unknown Hct 40.1 % (37.0-47.0) 04/08/23 Unknown MCV 92.6 fL (80.0-100.0) 04/08/23 Unknown MCH 30.9 pg (25.0-34.0) 04/08/23 Unknown MCHC 33.4 g/dL (32.0-36.0) 04/08/23 Unknown RDW Std Deviation 42.8 fL (36.4-46.3) 04/08/23 Unknown RDW Coeff of Yaw 12.5 % (11.5-14.5) 04/08/23 Unknown Plt Count 286 K/uL (130-400) 04/08/23 Unknown MPV 9.5 fL (9.4-12.4) 04/08/23 Unknown Immature Gran % (Auto) 0.4 % 04/08/23 Unknown Neut % (Auto) 68.8 % 04/08/23 Unknown Lymph % (Auto) 21.1 % 04/08/23 Unknown [place] % (Auto) 8.2 % 04/08/23 Unknown Eos % (Auto) 0.8 % 04/08/23 Unknown Baso % (Auto) 0.7 % 04/08/23 Unknown Neut # (Auto) 8.72 K/uL (1.40-6.50) H 04/08/23 Unknown Lymph # (Auto) 2.67 K/uL (1.2-3.4) 04/08/23 Unknown [place] # (Auto) 1.04 K/uL (0.11-0.59) H 04/08/23 Unknown Eos # (Auto) 0.10 K/uL (0-0.50) 04/08/23 Unknown Baso # (Auto) 0.09 K/uL (0-0.2) 04/08/23 Unknown Immature Gran # (Auto) 0.05 K/uL (0.01-0.20) 04/08/23 Unknown ESR 11 mm/hr (0-30) 04/09/23 01:05 PT 10.8 Seconds (9.0-12.0) 04/08/23 Unknown INR 1.0 (0.9-1.1) 04/08/23 Unknown APTT 25.3 Seconds (21.0-31.0) 04/08/23 Unknown PTT Ratio 0.9 04/08/23 Unknown Sodium 138 mmol/L (136-145) 04/08/23 Unknown Potassium 3.8 mmol/L (3.5-5.1) 04/08/23 Unknown Chloride 105 mmol/L (98-107) 04/08/23 Unknown Carbon Dioxide 25 mmol/L (21-32) 04/08/23 Unknown Anion Gap 8 (3-11) 04/08/23 Unknown BUN 29 mg/dl (6-23) H 04/08/23 Unknown Creatinine 1.11 mg/dl (0.6-1.2) 04/08/23 Unknown Est Cr Clr Drug Dosing 47.9 ml/min 04/08/23 Unknown Est GFR ( Amer) 57.1 ml/min 04/08/23 Unknown Est GFR (Non-Af Amer) 49.2 ml/min 04/08/23 Unknown BUN/Creatinine Ratio 26.1 (10-20) H 04/08/23 Unknown Glucose 179 mg/dl (70-99(Fasting)) H 04/08/23 Unknown Uric Acid 5.6 mg/dl (2.6-7.2) 04/09/23 01:05 Calcium 9.1 mg/dl (8.6-10.3) 04/08/23 Unknown Total Bilirubin 0.4 mg/dl (0.2-1.0) 04/08/23 Unknown AST 23 U/L (13-39) 04/08/23 Unknown ALT 21 U/L (7-52) 04/08/23 Unknown Alkaline Phosphatase 63 U/L (34-104) 04/08/23 Unknown Troponin I High Sens 6.1 pg/ml (0-14) 04/08/23 Unknown C-Reactive Protein 0.80 mg/dl (0-0.5) H 04/09/23 01:05 Total Protein 7.1 gm/dl (6.0-8.3) 04/08/23 Unknown Albumin 4.0 gm/dl (3.4-5.0) 04/08/23 Unknown Globulin 3.1 gm/dl (2.5-4.0) 04/08/23 Unknown Albumin/Globulin Ratio 1.3 (0.9-2) 04/08/23 Unknown SARS-CoV-2, RNA, NAAT NEGATIVE (NEGATIVE) 04/09/23 00:07 Impressions Hand X-Ray 04/08/23 18:30 XR hand LT min 3V routine, XR wrist LT min 3V routine CLINICAL HISTORY: L hand and wrist pain and edema COMPARISON STUDY: None. FINDINGS: No acute fracture or dislocation within the left hand or left wrist. There are mild degenerative changes within the left hand and wrist. Diffuse soft tissue swelling within the left hand. A 1 cm lobular focus of calcification along the volar aspect of the left wrist. This is likely chronic. IMPRESSION: 1. No fracture or dislocation within the left hand or left wrist. 2. Soft tissue swelling/edema within the left hand. 3. Mild degenerative changes within the left hand and wrist. 4. A focus of calcification at the volar aspect of the wrist is likely chronic. ACT 112: Negative or not required by law. Electronically signed by: Chavo Weldon M.D. 04/08/2023 7:02 PM Wrist X-Ray 04/08/23 18:30 XR hand LT min 3V routine, XR wrist LT min 3V routine CLINICAL HISTORY: L hand and wrist pain and edema COMPARISON STUDY: None. FINDINGS: No acute fracture or dislocation within the left hand or left wrist. There are mild degenerative changes within the left hand and wrist. Diffuse soft tissue swelling within the left hand. A 1 cm lobular focus of calcification along the volar aspect of the left wrist. This is likely chronic. IMPRESSION: 1. No fracture or dislocation within the left hand or left wrist. 2. Soft tissue swelling/edema within the left hand. 3. Mild degenerative changes within the left hand and wrist. 4. A focus of calcification at the volar aspect of the wrist is likely chronic. ACT 112: Negative or not required by law. Electronically signed by: Chavo Weldon M.D. 04/08/2023 7:02 PM Extremity Venous Study 04/08/23 18:31 Exam(s): US VENOUS LEFT UPPER EXTREMITY EXAM: US Duplex Left Upper Extremity Veins CLINICAL HISTORY: Reason for exam: L hand and arm pain and edema. TECHNIQUE: Real-time duplex ultrasound scan of the left upper extremity veins integrating B-mode two-dimensional vascular structure, Doppler spectral analysis, color flow Doppler imaging and compression. COMPARISON: No relevant prior studies available. FINDINGS: Deep veins: No DVT in the internal jugular, subclavian, axillary, or brachial veins. Superficial veins: No thrombus in the visualized basilic and cephalic veins. Soft tissues: No acute findings. IMPRESSION: No DVT in the left upper extremity. Electronically signed by: Jeremiah Barker MD 04/08/23 23:03 PM Hand MRI 04/09/23 00:13 Exam(s): MRI LEFT HAND Without Contrast EXAM: MR Left Upper Extremity Without Intravenous Contrast, Hand CLINICAL HISTORY: Reason for exam: Left hand swelling. TECHNIQUE: Multiplanar magnetic resonance images of the left hand without intravenous contrast. COMPARISON: No relevant prior studies available. FINDINGS: There is extensive soft tissue edema in the hand. This is most pronounced along the ulnar aspect of the hand in the region of the distal fourth and fifth metatarsals and the proximal fourth and fifth digits. There is also diffuse thickening and increased T2 signal involving the flexor tendons of the hand distal to the carpal tunnel. No significant fluid is seen surrounding the tendons. The tendons themselves are intact without significant enlargement. No focal fluid collection is seen to indicate abscess. No bone marrow signal abnormality is evident. Joint capsules are intact. There is no joint effusion. IMPRESSION: Diffuse soft tissue inflammation, most pronounced along the ulnar aspect of the hand. This is associated with diffuse tenosynovitis of the flexor tendons distal to the level of the carpal tunnel. No evidence of focal soft tissue abscess. No evidence of osteomyelitis. Electronically signed by: Bong Almendarez MD 04/09/23 06:25 AM (2) Hand swelling Laterality: left Qualified Code(s): M79.89 - Other specified soft tissue disorders
--- NOTE | 2023-04-09 10:15 | Pharmacy Report ---
Pharmacy PK ABX Note - Date of Service April 09, 2023 - Assessment and Plan Assessment 73 year old F receiving Vancomycin and Ceftriaxone for treatment of L hand skin and soft tissue infection. * Day #1 of antimicrobial therapy. * Reported L hand pain and swelling. MRI shows diffuse tenosynovitis per radiologist read. * Afebrile with a leukocytosis of 12.7k. SCr 1.11 mg/dL which is elevated from baseline of ~0.80. ESR normal, CRP mildly elevated. Blood cultures pending. * Ortho consult pending. Plan Vancomycin * Loading dose: 1500 mg IV x 1 * Maintenance dose: 750 mg IV every 12 hours * Regimen is predicted to achieve target AUC/LUIS of 400-600 mg/L.hr * Random level ordered for: 04/11/23 Pharmacy will continue to follow and will adjust dose/frequency as necessary. Thank you. Pharmacy has transitioned to AUC monitoring for vancomycin. AUC/LUIS is the preferred PK/PD target and is associated with decreased risk of nephrotoxicity compared to traditional trough targets.
--- NOTE | 2023-04-09 14:51 | Hospitalist Progress Note ---
Date of Service April 09, 2023 Assessment & Plan (1) Hand pain, left: Plan: This appears to be a cellulitis process of the left hand. Orthopedic consultation obtained and appreciated. No incision and drainage planned for today. The patient states that her left hand is improving. We will continue vancomycin and Rocephin. Venous Doppler of the left upper extremity is negative for DVT. (2) Hypertension: Plan: Stable. Continue lisinopril (3) Dyslipidemia: Plan: Stable. Continue atorvastatin Plan Hopefully home tomorrow, April 10, on oral antibiotic Admission and Anticipated Discharge Date Admission Date: April 09, 2023 Subjective Alert and oriented. Afebrile. She states her left hand is improving and she has better mobility of the fingers. Orthopedic consultation appreciated. No incision or drainage necessary today, April 09. MRI of the hand is negative for any abscess. Venous Doppler of the left upper extremity is negative for DVT. S he remains on vancomycin and Rocephin. Hopefully she can go home tomorrow, April 10, on an oral antibiotic Review of Systems Review of Systems: Constitutional-no fever or chills ENT-no blurred vision, no double vision, no epistaxis, no sore throat Respiratory-no cough, no wheezing, no shortness of breath Cardiac-no palpitations, no chest pain, no syncope GI-no nausea, vomiting, diarrhea, melena, hematochezia -no urinary retention, no urinary incontinence, no dysuria, no hematuria Musculoskeletal-left hand swelling, erythema, tenderness Skin-no bruising, no rashes, no pruritus Neuro-no isolated weakness, no paresthesia, no weakness Psych-no depression, no anxiety Physical Exam Physical Exam: General-alert and oriented x3, no fevers, no chills HEENT-head atraumatic and normocephalic, pupils equal and reactive to light, extraocular muscles intact Neck-no lymphadenopathy or thyromegaly, trachea midline Chest-clear to auscultation percussion. No rales wheezing or rhonchi Cardiac-regular rate and rhythm, normal S1 and S2, no murmurs Abdomen-normal bowel sounds, nontender, no hepatosplenomegaly Extremities-left hand erythema and swelling has diminished according to the patient. Neuro-cranial nerves II through XII intact, motor and sensory function within normal limits, strength symmetrical , no focal deficits Psych-normal affect, normal mood Results & Data Results & Data Vital Signs (Past 12 Hours) Vital Signs Temp Pulse Resp BP Pulse Ox O2 Del Method 04/09/23 07:26 36.4 C L 72 17 137/61 95 Room Air Laboratory Results 04/08/23 Unknown 04/08/23 Unknown PG Care Time/CCT Total # of Minutes Spent Total Time Spent with Patient: Total time spent is greater than 50% in coordination of care (as documented) at patient's floor/unit and/or counseling patient: Coding Level of Care Code 30827 SUB INP/OBS CARE 3/50MIN Diagnoses Hand pain, left M79.642 Hypertension I10 Dyslipidemia E78.5
--- NOTE | 2023-04-09 15:48 | Orthopedic Progress Note ---
Date of Service April 09, 2023 Assessment & Plan (1) Flexor tenosynovitis of finger: Plan I suspect this is either early septic flexor tenosynovitis versus cellulitis. She has had overall improvement with antibiotic course recommendations continue antibiotics for additional 24 hours. If she continues to have improvement it is possible she can avoid surgical treatment. If she has a decline in her condition I would consider surgical irrigation and debridement on Saturday afternoon. We will continue to follow continue antibiotics Admission and Anticipated Discharge Date Admission Date: April 09, 2023 Subjective She states overall she has less pain than yesterday and has improvements over the past 24 hours with the antibiotics.She however has continued pain in the hand Physical Exam Musculoskeletal: Left hand exam: She has mild streaking erythema which is faint. She has mildly positive Knaavel signs in the small finger with most tenderness over the small finger flexor tendon sheath. Moderate swelling over the dorsal hand Results & Data Vital Signs (Past 12 Hours) Vital Signs Temp Pulse Resp BP Pulse Ox O2 Del Method 04/09/23 07:26 36.4 C L 72 17 137/61 95 Room Air
--- NOTE | 2023-04-09 15:49 | Orthopedic Progress Note ---
Date of Service April 09, 2023 Assessment & Plan (1) Flexor tenosynovitis of finger: Plan I suspect this is either early septic flexor tenosynovitis versus cellulitis. She has had overall improvement with antibiotic course recommendations continue antibiotics for additional 24 hours. If she continues to have improvement it is possible she can avoid surgical treatment. If she has a decline in her condition I would consider surgical irrigation and debridement on Saturday afternoon. We will continue to follow continue antibiotics Admission and Anticipated Discharge Date Admission Date: April 09, 2023 Subjective She states overall she has less pain than yesterday and has improvements over the past 24 hours with the antibiotics.She however has continued pain in the hand Physical Exam Musculoskeletal: Left hand exam: She has mildly positive Knaval signs in the small finger. Moderate swelling of the dorsal hand. She has faint streaking erythema which I marked. Results & Data Vital Signs (Past 12 Hours) Vital Signs Temp Pulse Resp BP Pulse Ox O2 Del Method 04/09/23 07:26 36.4 C L 72 17 137/61 95 Room Air
--- NOTE | 2023-04-09 17:52 | Electrocardiogram Report ---
Test Reason : Blood Pressure : / mmHG Vent. Rate : 072 BPM Atrial Rate : 072 BPM P-R Int : 164 ms QRS Dur : 092 ms QT Int : 438 ms P-R-T Axes : 050 -11 042 degrees QTc Int : 479 ms Normal sinus rhythm Possible Left atrial enlargement Incomplete right bundle branch block Borderline ECG No previous ECGs available Confirmed by Daquan Luna ([id number]) on 04/09/2023 5:52:16 PM Referred By: REFERRED SELF Confirmed By:Malcolm Luna
[2023-04-09] MEDS: VANCOMYCIN HCL 750 MG in SODIUM CHLORIDE 0.9% 250 ML IV SCH (19:34)
[2023-04-10] MEDS ORDERED: cefTRIAXone SODIUM 2,000 MG in DEXTROSE 5% 50 ML IV SCH (02:00)
[2023-04-10 06:47] LABS: Basophils # (auto) 0.04 K/uL (0-0.2); Basophils % (auto) 0.4 %; Eosinophils # (auto) 0.09 K/uL (0-0.50); Eosinophils % (auto) 0.9 %; Hematocrit (blood only) 33.3 % (37.0-47.0); Hemoglobin 11.4 g/dl (12.0-16.0); Immature Granulocytes # (auto) 0.05 K/uL (0.01-0.20); Immature Granulocytes % (auto) 0.5 %; Lymphocytes # (auto) 2.47 K/uL (1.2-3.4); Mean Corpuscular Hemoglobin 31.1 pg (25.0-34.0); Mean Corpuscular Hgb Conc 34.2 g/dL (32.0-36.0); Mean Platelet Volume 9.7 fL (9.4-12.4); Monocytes # (auto) 0.66 K/uL (0.11-0.59); Monocytes % (auto) 6.7 %; Neutrophils # (auto) 6.58 K/uL (1.40-6.50); Neutrophils % (auto) 66.5 %; Platelet Count 233 K/uL (130-400); RDW Coefficient of Variation 12.9 % (11.5-14.5); RDW Standard Deviation 42.7 fL (36.4-46.3); Red Blood Count 3.66 M/uL (4.20-5.40); White Blood Count 9.89 K/ul (4.8-10.8)
[2023-04-10 07:06] LABS: BUN Creatinine Ratio 25.6 (10-20); Calcium 8.1 mg/dl (8.6-10.3); Creatinine Clr Calc Pharmacy 64.2 ml/min; Est GFR (African American) 82.3 ml/min; Potassium 4.2 mmol/L (3.5-5.1)
[2023-04-10] MEDS: VANCOMYCIN HCL 750 MG in SODIUM CHLORIDE 0.9% 250 ML IV SCH (07:48)
[2023-04-10] MEDS: lisinopril 20 MG TAB PO SCH (07:48)
--- NOTE | 2023-04-10 09:02 | Orthopedic Progress Note ---
Date of Service April 10, 2023 Assessment & Plan (1) Flexor tenosynovitis of finger: Plan Patient continues to have interval improvement of her pain and erythema of the hand. She has a little bit better mobility with flexion and extension and continues to have some pain with passive extension of the fifth finger. I will discuss with Dr. Purdy. We will continue to keep her n.p.o. status and continue IV antibiotics. Blood cultures continue to remain negative at this time. Addendum: reviewed with Dr Purdy. With noted improvement, patient will be dc'd to home on oral antibx. Plan to follow up in Dr. Purdy's office tomorrow, 04/11/23 Admission and Anticipated Discharge Date Admission Date: April 09, 2023 Subjective Patient sitting up in bed this morning awake and alert. Patient is does note some overall improvement with the inflammation in her hand. She notes that she continues to have some swelling in and around the dorsum of the hand and wrist but notes that she is getting better range of motion. She also states that the pain she was having over the palmar aspect of her hand has changed and is more of an ache compared to yesterday. Physical Exam Physical Exam: On exam, there have been pen markings that were drawn showing her erythema. A good portion of her erythema is resolving. She continues to have some mild swelling over the dorsum of the hand and some mild swelling over the ulnar aspect of the wrist she does have some decreased range of motion of her wrist at this time compared to the opposite side. She continues to have some pain with increased passive extension of the fifth finger. No overt pain with passive flexion of the fifth finger. She can fully flex her thumb, index, and middle finger to attempt to make a fist however the patient's fourth and fifth fingers are still unable to fully flex actively. Overall, she has notable improvement. Results & Data Vital Signs (Past 12 Hours) Vital Signs Temp Pulse Resp BP Pulse Ox O2 Del Method 04/10/23 07:39 36.5 C 64 18 166/78 H 96 Room Air
--- NOTE | 2023-04-10 12:14 | Discharge Summary ---
Date of Service April 10, 2023 Admission HPI Per Admitting Provider 73yo Female with PMH HTN HLD here for left hand pain and swelling. Patient noted this morning her left hand ached, noted some swelling in her fingers notedly fingers 4 and 5, thought she had slept wrong was still able to move her fingers and perform daily tasks. Patient noted as the day went on and she did more activity, she developed more hand pain and swelling of her entire hand stopping at the wrist, she took her rings off her left hand to avoid having them stuck on her hand. Patient began noting tingling/numbness on the tips of her left fingers. 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 She went home used ice and ibuprofen, states nothing helped. She went to dinner with family, however continued to have throbbing swelling pain in left hand, developed nausea and light headedness felt faint, family brought her to ED. In ED she was given fentanyl 100mcg ketorolac 10mg tylenol 1000mg gabapentin 100mg capsaicin cream and methylprednisolone 125mcg. Patient states her left hand is still swollen, pain now traveling up her left arm, has increased redness on dorsal side of hand over 4th and 5th metacarpals, has tenderness to palpation across left hand but moreso over 5th PP. Patient states she was most worried about having a heart attack, her father had cardiac conditions attributed to advanced age and poor lifestyle. Patient states she is right handed. Denies any recent noted cuts or scraps, however she does do needlework and other hobbies, family notes she is not good at using a knife in the kitchen. Denies recent animal bites, does have a dog that licks her hand. Patient denies any fever SOB pain elsewhere. Uncertain when her last TDAP dose was. Principal Diagnosis Left hand cellulitis Discharge Exam General-alert and oriented x3, no fevers, no chills HEENT-head atraumatic and normocephalic, pupils equal and reactive to light, extraocular muscles intact Neck-no lymphadenopathy or thyromegaly, trachea midline Chest-clear to auscultation percussion. No rales wheezing or rhonchi Cardiac-regular rate and rhythm, normal S1 and S2, no murmurs Abdomen-normal bowel sounds, nontender, no hepatosplenomegaly Extremities-left hand erythema and swelling continues to resolve. Increased mobility of fingers and wrist noted Neuro-cranial nerves II through XII intact, motor and sensory function within normal limits, strength symmetrical , no focal deficits Psych-normal affect, normal mood Discharge Data Allergies Allergy/AdvReac Type Severity Reaction Status Date / Time animal dander Allergy Verified 03/06/23 11:46 codeine Allergy Verified 03/06/23 11:46 house dust Allergy Verified 03/06/23 11:46 mold Allergy Verified 03/06/23 11:46 tree and shrub pollen Allergy Verified 03/06/23 11:46 Consultations 04/09/23 01:31 ED Decision to Admit Stat 04/09/23 02:27 Consult Orthopedic Surgery Routine Ordered Studies 04/08/23 18:31 US venous doppler UE LT Stat 04/09/23 00:13 MRI Hand [MR hand LT wo con] Routine Hospital Course (1) Hand pain, left: This appears to be a cellulitis process of the left hand. Orthopedic consultation obtained and appreciated. No incision and drainage needed. Definite improvement clinically. Treated while hospitalized with vancomycin and Rocephin. Venous Doppler of the left upper extremity is negative for DVT. Home today on oral Bactrim (2) Hypertension: Stable. Continue lisinopril (3) Dyslipidemia: Stable. Continue atorvastatin Plan Home today, April 10, on Bactrim. Follow-up with Dr. Armijo later this week Total Time Total Time Spent Total Time Spent (In Minutes): 40 minutes Discharge Plan Discharge Items Patient Disposition: Home - Self-Care Reason For Visit: LEFT HAND PAIN Discharge Diagnosis: Left hand cellulitis Activity: Resume your previous activity Non-emergency contact: Primary Care Provider Call non-emergency contact if: your symptoms worsen Follow-up/Referrals: Leonard Pollard DO [Primary Care Provider] - Diet: Regular and Heart Healthy Addtl Attending Provider Instructions: Take Bactrim twice a day as directed. Follow-up with Dr. Purdy this week Pending Studies at Discharge: No Stand-Alone Forms: [employer], Smoking Cessation Medications and DC Order Prescriptions: New sulfamethoxazole-trimethoprim [Bactrim DS] 800-160 mg tablet 1 tab PO BID 10 Days Qty: 20 0RF Continued lisinopril 20 mg tablet 20 mg PO DAILY Qty: 90 3RF olopatadine [Pataday Once Daily Relief] 0.2 % drops 1 drp ophthalmic (eye) QAM Qty: 2.5 2RF fluticasone propionate [Flonase Allergy Relief] 50 mcg/actuation spray,suspension 2 spray intranasal DAILY Qty: 16 3RF Rx Instructions: administer into each nostril omega-3 fatty acids 500 mg capsule 500 mg PO DAILY albuterol sulfate 90 mcg/actuation HFA aerosol inhaler 2 puff inhalation Q6H PRN (Reason: shortness of breath or wheezing) Qty: 6.7 1RF loratadine 10 mg capsule 10 mg PO DAILY PRN (Reason: Allergy Symptoms) cranberry 500 mg capsule 500 mg PO DAILY Rx Instructions: administer with meals multivitamin [Multiple Vitamins] Tablet 1 tab PO DAILY atorvastatin 10 mg tablet 10 mg PO DAILY Discharge Orders: Discharge Order (Routine); Ordered 04/10/23 Ordered By: Bong Garcia Admission Data Admit Date/Time: 04/09/23 13:46 Attending Provider: Bong Garcia Admit Provider: Willa Spain Primary Care Provider: Leonard Pollard Other Providers: Virgie Farley William A. Coding Level of Care Code 93355 INP/OBS DISCH >30 MIN Diagnoses Hand pain, left M79.642 Hypertension I10 Dyslipidemia E78.5
[2023-04-11] MEDS ORDERED: VANCOMYCIN LEVEL ONE (07:30)
== END 2023-04-10 13:17 | disposition home or self-care (01) | DRG 558 ==
LOC: ED 18:23 → 3E 18:23 → SUATTDRO 23:59 → 3E 04-09 02:01
DX: Z91.048 Other nonmedicinal substance allergy status; E78.5 Hyperlipidemia, unspecified; M65.142 Other infective (teno)synovitis, left hand; L03.114 Cellulitis of left upper limb; Z88.5 Allergy status to narcotic agent; I10 Essential (primary) hypertension; Z79.899 Other long term (current) drug therapy

== ENCOUNTER 2023-11-09 07:39 | Observation (INO) ==
[2023-11-09] MEDS: ONDANSETRON INJ 2 MG/ML 2 ML VIAL IV STA ×2 (08:15→08:40)
[2023-11-09] MEDS: HYDROmorphone INJ 0.5 MG/0.5 ML SYR IV PRN (08:16)
[2023-11-09] MEDS: SODIUM CHLORIDE 0.9% 1,000 ML IV ONE (08:18)
[2023-11-09 08:24] LABS: Basophils # (auto) 0.08 K/uL (0.00-0.20); Basophils % (auto) 0.8 %; Eosinophils # (auto) 0.25 K/uL (0.00-0.50); Eosinophils % (auto) 2.5 %; Hematocrit (blood only) 42.3 % (37.0-47.0); Hemoglobin 14.7 g/dl (12.0-16.0); Immature Granulocytes # (auto) 0.02 K/uL (0.01-0.20); Immature Granulocytes % (auto) 0.2 %; Lymphocytes # (auto) 2.12 K/uL (1.20-3.40); Lymphocytes % (auto) 20.8 %; Mean Corpuscular Hemoglobin 31.1 pg (25.0-34.0); Mean Corpuscular Hgb Conc 34.8 g/dL (32.0-36.0); Mean Corpuscular Volume 89.4 fL (80.0-100.0); Mean Platelet Volume 9.7 fL (9.4-12.4); Monocytes # (auto) 0.66 K/uL (0.11-0.59); Monocytes % (auto) 6.5 %; Neutrophils # (auto) 7.05 K/uL (1.40-6.50); Neutrophils % (auto) 69.2 %; Platelet Count 300 K/uL (130-400); RDW Coefficient of Variation 12.5 % (11.5-14.5); RDW Standard Deviation 41.1 fL (36.4-46.3); Red Blood Count 4.73 M/uL (4.20-5.40); White Blood Count 10.18 K/ul (4.8-10.8)
[2023-11-09 08:54] LABS: Alanine Aminotransferase 22 U/L (7-52); Albumin Globulin Ratio 1.4 (0.9-2); Albumin Level 4.2 gm/dl (3.4-5.0); Alkaline Phosphatase 57 U/L (34-104); Anion Gap 7 (3-11); Aspartate Aminotransferase 24 U/L (13-39); BUN Creatinine Ratio 21.5 (10-20); Bilirubin,Total 0.5 mg/dl (0.2-1.0); Blood Urea Nitrogen 20 mg/dl (6-23); Calcium 9.1 mg/dl (8.6-10.3); Carbon Dioxide 26 mmol/L (21-32); Chloride 107 mmol/L (98-107); Creatinine Clr Calc Pharmacy 54.9 ml/min; Est GFR (African American) 70.7 ml/min; Globulin 2.9 gm/dl (2.5-4.0); Glucose 117 mg/dl (70-99(Fasting)); Lipase 33 U/L (11-82); Potassium 3.8 mmol/L (3.5-5.1); Sodium 140 mmol/L (136-145); Total Protein 7.1 gm/dl (6.0-8.3)
--- NOTE | 2023-11-09 09:37 | CT Scan Report ---
CT SCAN OF THE ABDOMEN AND PELVIS WITHOUT IV CONTRAST CLINICAL HISTORY: Left lower quadrant and left flank pain. COMPARISON STUDY: No priors. TECHNIQUE: CT scan of the abdomen and pelvis is performed from the lung bases to the proximal femora. Images are reviewed in the axial, sagittal, and coronal planes. IV contrast was not administered for this examination. A dose lowering technique was utilized adhering to the principles of ALARA. CT DOSE: 1082.85 mGy.cm FINDINGS: Lung bases: The heart is top normal in size and without pericardial effusion. The mitral annulus is d ensely calcified. There is a small hiatal hernia. The lung bases are clear noting bibasilar scarring/ atelectasis. Liver: The unenhanced liver is normal in size, contour, and attenuation. There is no intrahepatic aziza iary ductal dilatation. Gallbladder: Surgically absent noting clips in the gallbladder fossa. Spleen: Normal in size and attenuation. Pancreas: Unremarkable. Adrenal glands: Unremarkable. Kidneys: The unenhanced kidneys are normal in size and without hydronephrosis. No renal calculi are i dentified and there is no ureteral stone. There is no evidence of contour deforming renal mass lesion . Abdominal vasculature: The abdominal aorta is normal in course and caliber noting advanced atheroscle rotic calcification. Bowel: There are scattered colonic diverticula without CT evidence of acute diverticulitis. No bowel obstruction is seen. The appendix is well-visualized and normal. Peritoneum: There is no intraperitoneal free air or abdominal ascites. There is a small fat-containin g umbilical hernia. Midline skin clips are noted in the pelvis. Lymphadenopathy: None. Pelvic viscera: The bladder, uterus, and adnexa are normal as visualized. Skeletal structures: The skeletal structures are osteopenic. There is mild to moderate lumbosacral sp ondylosis and scoliosis. No lytic or blastic lesions are seen. IMPRESSION: 1. No acute infectious or inflammatory findings are identified in the abdomen or pelvis. 2. Midline skin clips are noted in the pelvis. Correlate with the surgical history. 3. Additional findings as above. ACT 112: Negative or not required by law. Electronically signed by: Guy Mueller M.D. 11/09/2023 9:34 AM
--- NOTE | 2023-11-09 09:37 | Emergency Department Note ---
Impression & Plan Acute left flank pain, Nausea & vomiting ED Provider Note NAME: RITA SALMERON AGE: 73 SEX: Female INFORMANT: Patient and family ED PROVIDER(S): Kofi Wayne MD CHIEF COMPLAINT: Left flank pain PLAN: Disposition: Admitted Outpatient prescription management: none Referral: None MEDICAL DECISION MAKING: Patient presented because of acute left flank pain. She was very uncomfortable and nauseated. She was given IV Zofran and IV Dilaudid for pain control. Imaging and blood work ordered. Urinalysis ordered as well. Patient was reassessed and was still uncomfortable and given a second dose of IV Dilaudid. Patient went to CT imaging. CT imaging of the abdomen pelvis was negative for any acute pathology. Specifically no kidney stone or diverticulitis seen. Patient was still very nauseated and in a lot of pain. She was given additional dose of Zofran. She had unremarkable laboratory testing. Patient was still feeling symptomatic and very nauseated. She was given 2 doses of IV Reglan and a dose of Toradol. She was transition to IV fentanyl and also given IV Phenergan due to persistent nausea and vomiting. Patient was reassessed and was feeling much better with the pain and the nausea and vomiting resolved. CT angiography was performed and no aneurysm or dissection was seen normal perfusion to the kidneys per radiology. At this point due to the significant discomfort MR imaging was ordered to further evaluate the spine. Patient underwent this uneventfully. In light of her persistent symptoms requiring multiple doses of IV analgesia and IV antiemetics further management in the hospital was felt to be most appropriate for monitoring and additional treatment. [facility] Case discussed and diagnostics were reviewed with Dr. Hilton. 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 Vital Signs: reviewed and remarkable for hypertension Additional History obtained from: Family. They noted that she has significant discomfort and this is unusual for her Chronic Medical/Social Conditions affecting care: Hypertension Prior/ Outside/ External records reviewed: Outside imaging reviewed of the lumbar spine. Flattening of the disc noted but no acute pathology appreciated. Differential Diagnosis: Renal colic, UTI, appendicitis, diverticulitis, mesenteric ischemia, aortic pathology, infections, inflammatory bowel disease, PUD, biliary pathology, as well as other pathologies. Diagnostics, independently interpreted by me: ECG: none Cardiac Monitoring:Cardiac monitoring ordered by me: The patient was placed on continuous cardiac monitoring and observed. It revealed a normal sinus rhythm at 72 beats per minute without ectopy or evidence of dysrhythmia. Medical decision rules: none Imaging studies: None HPI: 73 year old Female arrives for evaluation of left flank pain. This started about 3 and half days ago and is waxing and waning. The patient also notes the following associated symptoms, nausea and vomiting. The patient has found no relieving factors. Current pain is rated as 10/10. No prior history of the same. No trauma. Patient did have outpatient testing and x-rays performed. No significant problems were noted. Pain became more severe last night and she came in for reevaluation. Pain is radiating towards the left lower quadrant now. Pt denies LOC, headache, fevers, chills, diaphoresis, visual changes, neck pain, chest pain, breathing difficulties, melena, hematochezia, urinary symptoms, numbness, weakness, lymphadenopathy, rash, or other complaints. PAST MEDICAL HISTORY: See Below, hypertension PAST SURGICAL HISTORY: See Below, SOCIAL HISTORY: See Below, non-smoker HOME MEDICATIONS: See Below ALLERGIES: See Below VITALS: See Below PHYSICAL EXAMINATION: GENERAL: Awake, alert, very uncomfortable-appearing, in moderate distress HENT: Normocephalic, atraumatic. Oropharynx unremarkable. EYES: Normal conjunctiva. Sclera non-icteric. NECK: Inspection normal. Non-tender. Supple. No nuchal rigidity. FROM. No masses. RESPIRATORY: Clear to auscultation. No wheezes. No rales. Normal respiratory effort. CARDIAC: Normal rate. Normal rhythm. No murmurs. No rubs. Extremities warm and well perfused. Pulses equal. No JVD. GI: Soft, non-distended. Left lower quadrant tenderness to palpation. No rebound or guarding. No masses. RECTAL: Deferred. MUSCULOSKELETAL: Atraumatic. Chest examination reveals no tenderness. The back is symmetrical on inspection without obvious abnormality. There is left CVA tenderness to palpation. No joint edema. LOWER EXTREMITIES: Calves are equal size bilaterally and non-tender. No edema. No discoloration. NEURO: Normal sensorium. No sensory or motor deficits noted. SKIN: No rash or jaundice noted. PROCEDURES: none CRITICAL CARE: none OBSERVATION NOTE: none Past Med/Surg History Medical History (Updated 11/10/23 @ 07:02 by Grupo Hilton MD) Dyslipidemia Hypertension Varicose veins of both lower extremities without ulcer or inflammation History of asthma Surgical History H/O laparoscopy H/O varicose vein ligation H/O tubal ligation left leg, 1991 Hx of cholecystectomy 2004 H/O section 1975 Family History Mother Pancreatic cancer Gallbladder disease Kidney disease Father Cardiac disorder Myocardial infarction Brother Malignant neoplasm of brain Denies family history of Ovarian cancer Prostate cancer Breast cancer Colorectal cancer Social History Smoking Status: Never smoker Second Hand Exposure: No; Do You Dip or Chew Tobacco: No; Hx Alcohol Use: Yes Alcohol type: wine Alcohol Intake Frequency: Monthly or Less Alcohol Intake Frequency Comment: social Hx Substance Use: No Preferred Language: Syriac Communication Ability: Effective Visual Impairment: Limited Hearing Ability: Normal Director Of Property Management Required: No Beliefs That Will Affect Care: None marital status: Current Living Situation: Family Current Living Situation Comment: with daughter current occupational status: retired 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, [employer] How many Children do You have: 2 Feels Safe at Home: Yes Childhood Exposure to Second-Hand Smoke: Yes caffeine: Yes (coffee and sometimes tea ) Dental Care, Regularly: Yes Physical Activity Frequency: 5-6 Times per Week Seatbelt Use: always Sunscreen Use: Yes Assistive Devices: Glasses Allergies Allergies Allergy/AdvReac Type Severity Reaction Status Date / Time animal dander Allergy Verified 11/09/23 09:15 codeine Allergy Verified 11/09/23 09:15 house dust Allergy Verified 11/09/23 09:15 mold Allergy Verified 11/09/23 09:15 tree and shrub pollen Allergy Verified 11/09/23 09:15 Home Meds Home Medications Medication Instructions Recorded Confirmed loratadine 10 mg capsule 10 mg PO DAILY PRN Allergy Symptoms 04/06/19 11/09/23 cranberry 500 mg capsule 500 mg PO DAILY 05/04/21 11/09/23 omega-3 fatty acids 500 mg capsule 500 mg PO DAILY 09/05/22 11/09/23 atorvastatin 10 mg tablet 10 mg PO DAILY 04/08/23 11/09/23 multivitamin (Multiple Vitamins 1 tab PO DAILY 04/08/23 11/09/23 tablet) cholecalciferol (vitamin D3) 25 25 mcg PO DAILY 04/17/23 11/09/23 mcg (1,000 unit) capsule fluticasone propionate 50 2 spray intranasal DAILY PRN 04/17/23 11/09/23 mcg/actuation nasal Allergy Symptoms spray,suspension (Flonase Allergy Relief) olopatadine 0.2 % eye drops 1 drp ophthalmic (eye) QAM PRN 04/17/23 11/09/23 (Pataday Once Daily Relief) IRRITATION Previous Rx's Medication Instructions Recorded lisinopril 20 mg tablet 20 mg PO DAILY #90 tabs 04/23/23 albuterol sulfate 90 mcg/actuation 2 puff inhalation Q6H PRN 10/17/23 aerosol inhaler shortness of breath or wheezing #6.7 grams cyclobenzaprine 5 mg tablet 5 mg PO TID PRN muscle spasm #30 11/07/23 tabs famotidine 20 mg tablet (Pepcid) 20 mg PO BID 10 days #20 tabs 11/10/23 ketorolac 10 mg tablet 10 mg PO Q8H PRN pain #14 tabs 11/10/23 Results & Data (ED) Vital Signs Vital Signs - 24 hr 11/09/23 14:40 11/09/23 14:41 11/09/23 14:41 Pulse Rate 88 85 87 Pulse Rate from SpO2 Sensor 87 Respiratory Rate 22 24 20 Blood Pressure 160/98 H Blood Pressure Mean 118 Pulse Oximetry 94 94 Oxygen Delivery Method Room Air 11/09/23 15:00 Pulse Rate 84 Pulse Rate from SpO2 Sensor 84 Respiratory Rate 19 Blood Pressure 160/98 H Blood Pressure Mean 118 Pulse Oximetry 94 Oxygen Delivery Method Laboratory Data 11/10/23 07:32 11/10/23 07:32 Lab Results 11/09/23 11/09/23 Range/Units 07:50 11:09 WBC 10.18 (4.8-10.8) K/ul RBC 4.73 (4.20-5.40) M/uL Hgb 14.7 (12.0-16.0) g/dl Hct 42.3 (37.0-47.0) % MCV 89.4 (80.0-100.0) fL MCH 31.1 (25.0-34.0) pg MCHC 34.8 (32.0-36.0) g/dL RDW Std Deviation 41.1 (36.4-46.3) fL RDW Coeff of Yaw 12.5 (11.5-14.5) % Plt Count 300 (130-400) K/uL MPV 9.7 (9.4-12.4) fL Immature Gran % (Auto) 0.2 % Neut % (Auto) 69.2 % Lymph % (Auto) 20.8 % Winkler % (Auto) 6.5 % Eos % (Auto) 2.5 % Baso % (Auto) 0.8 % Neut # (Auto) 7.05 H (1.40-6.50) K/uL Lymph # (Auto) 2.12 (1.20-3.40) K/uL Winkler # (Auto) 0.66 H (0.11-0.59) K/uL Eos # (Auto) 0.25 (0.00-0.50) K/uL Baso # (Auto) 0.08 (0.00-0.20) K/uL Immature Gran # (Auto) 0.02 (0.01-0.20) K/uL Sodium 140 (136-145) mmol/L Potassium 3.8 (3.5-5.1) mmol/L Chloride 107 (98-107) mmol/L Carbon Dioxide 26 (21-32) mmol/L Anion Gap 7 (3-11) BUN 20 (6-23) mg/dl Creatinine 0.93 (0.6-1.2) mg/dl Est Cr Clr Drug Dosing 54.9 ml/min Est GFR ( Amer) 70.7 ml/min Est GFR (Non-Af Amer) 61.0 ml/min BUN/Creatinine Ratio 21.5 H (10-20) Glucose 117 H (70-99(Fasting)) mg/dl Calcium 9.1 (8.6-10.3) mg/dl Total Bilirubin 0.5 (0.2-1.0) mg/dl AST 24 (13-39) U/L ALT 22 (7-52) U/L Alkaline Phosphatase 57 (34-104) U/L C-Reactive Protein < 0.50 (0-0.5) mg/dl Total Protein 7.1 (6.0-8.3) gm/dl Albumin 4.2 (3.4-5.0) gm/dl Globulin 2.9 (2.5-4.0) gm/dl Albumin/Globulin Ratio 1.4 (0.9-2) Lipase 33 (11-82) U/L Urine Color Yellow Urine Appearance Clear (Clear) Urine pH 7.5 (4.5-7.5) Ur Specific [place] 1.023 (1.000-1.030) Urine Protein Negative (Negative) Urine Glucose (UA) Trace H (Negative) Urine Ketones 1+ H (Negative) Urine Blood Trace H (Negative) Urine Nitrite Negative (Negative) Urine Bilirubin Negative (Negative) Urine Urobilinogen Negative (Negative) Ur Leukocyte Esterase Negative (Negative) Urine WBC (Auto) 1-5 (0-5) /hpf Urine RBC (Auto) 0-4 (0-4) /hpf U Hyaline Cast (Auto) 0 (0-5) /lpf U Epithel Cells (Auto) 0-5 (0-5) /lpf Urine Bacteria (Auto) Negative (Negative) Administered Medications Discontinued Medications Acetaminophen (Acetaminophen 500 Mg Tab) 1,[address] [facility] Stop: 12/09/23 20:59 Last Admin: 11/10/23 08:22 Dose: 1,000 mg Documented By: Admin: 11/09/23 22:10 Dose: Not Given Documented By: PATSY Atorvastatin Calcium (Atorvastatin 10 Mg Tab) [address] [facility] Stop: 12/10/23 08:59 Last Admin: 11/10/23 08:26 Dose: Not Given Documented By: CIELO Fentanyl Citrate (Fentanyl Citrate Pf 100 Mcg/2 Ml Vial) 50 mcg IV Q15M PRN PRN Reason: Pain Stop: 11/23/23 13:06 Last Admin: 11/09/23 16:13 Dose: 50 mcg Documented By: Admin: 11/09/23 13:41 Dose: 50 mcg Documented By: KALI Gadobutrol (Gadobutrol 7.5ml Vial) 7 ml IV ONCE ONE Stop: 11/09/23 14:15 Last Admin: 11/09/23 14:15 Dose: 7 ml Documented By: CHRISTIANA Hydromorphone HCl (Hydromorphone Inj 0.5 Mg/0.5 Ml Syr) 0.5 mg IV Q15M PRN PRN Reason: Pain Stop: 11/23/23 08:08 Last Admin: 11/09/23 08:31 Dose: 0.5 mg Documented By: Admin: 11/09/23 08:16 Dose: 0.5 mg Documented By: LUCIA Sodium Chloride (Nss) 1,000 mls @ 999 mls/hr IV .Q1H1M ONE Stop: 11/09/23 09:09 Last Infusion: 11/09/23 10:01 Dose: Infused Documented By: Admin: 11/09/23 08:18 Dose: 999 mls/hr Documented By: LUCIA Promethazine HCl (Phenergan) 12.5 mg in 50.5 mls @ 202 mls/hr IV NOW STA Stop: 11/09/23 13:25 Last Infusion: 11/09/23 13:47 Dose: Infused Documented By: [facility] Admin: 11/09/23 13:26 Dose: 202 mls/hr Documented By: KALI Acetaminophen (Ofirmev) 1,000 mg in 100 mls @ 400 mls/hr IV NOW STA Stop: 11/09/23 17:14 Last Infusion: 11/09/23 19:10 Dose: Infused Documented By: Admin: 11/09/23 18:32 Dose: 400 mls/hr Documented By: CIELO Famotidine (Pepcid 20mg Iv Push) 20 mg in 5 mls @ 2.5 mls/min IV ONE ONE Stop: 11/09/23 17:46 Last Admin: 11/09/23 22:08 Dose: 2.5 mls/min Documented By: PATSY Famotidine 20 mg/ Syringe 5 mls @ 2.5 mls/min IV Q12 LU Stop: 12/10/23 08:59 Last Admin: 11/10/23 08:22 Dose: 2.5 mls/min Documented By: CIELO Ioversol (Optiray 320 125ml) 116 ml IV ONCE ONE Stop: 11/09/23 10:17 Last Admin: 11/09/23 10:17 Dose: 116 ml Documented By: MARISEL Ketorolac Tromethamine (Ketorolac Tromethamine 15 Mg/Ml Vial) 15 mg IV NOW ONE Stop: 11/09/23 09:46 Last Admin: 11/09/23 10:00 Dose: 15 mg Documented By: LUCIA Ketorolac Tromethamine (Ketorolac Tromethamine 15 Mg/Ml Vial) 15 mg IV Q6H PRN PRN Reason: Pain Stop: 11/14/23 18:08 Last Admin: 11/10/23 10:01 Dose: 15 mg Documented By: Admin: 11/10/23 00:33 Dose: 15 mg Documented By: PATSY Lisinopril (Lisinopril 20 Mg Tab) 20 mg PO DAILY [facility] Stop: 12/10/23 08:59 Last Admin: 11/10/23 08:22 Dose: 20 mg Documented By: CIELO Metoclopramide HCl (Metoclopramide Hcl Inj 5 Mg/Ml 2 Ml Vial) 5 mg IV ONE ONE Stop: 11/09/23 09:46 Last Admin: 11/09/23 09:56 Dose: 5 mg Documented By: LUCIA Metoclopramide HCl (Metoclopramide Hcl Inj 5 Mg/Ml 2 Ml Vial) 5 mg IV ONE ONE Stop: 11/09/23 11:15 Last Admin: 11/09/23 11:24 Dose: 5 mg Documented By: BUCKY Ondansetron HCl (Ondansetron Inj 2 Mg/Ml 2 Ml Vial) 4 mg IV NOW STA Stop: 11/09/23 08:10 Last Admin: 11/09/23 08:15 Dose: 4 mg Documented By: LUCIA Ondansetron HCl (Ondansetron Inj 2 Mg/Ml 2 Ml Vial) 4 mg IV NOW STA Stop: 11/09/23 08:33 Last Admin: 11/09/23 08:40 Dose: 4 mg Documented By: LUCIA Ondansetron HCl (Ondansetron Inj 2 Mg/Ml 2 Ml Vial) 4 mg IV Q4H PRN PRN Reason: Nausea Stop: 12/09/23 18:08 Last Admin: 11/10/23 00:33 Dose: 4 mg Documented By: PATSY Promethazine HCl (Promethazine 12.5 Mg/50.5 Ml Nss) Confirm Administered Dose 12.5 mg IV .STK-MED ONE Stop: 11/09/23 13:12 Last Admin: 11/09/23 13:18 Dose: 12.5 mg Documented By: [facility] Imaging Data Radiologist's Impression: Abdomen/Pelvis CT 11/09/23 08:10 CT SCAN OF THE ABDOMEN AND PELVIS WITHOUT IV CONTRAST CLINICAL HISTORY: Left lower quadrant and left flank pain. COMPARISON STUDY: No priors. TECHNIQUE: CT scan of the abdomen and pelvis is performed from the lung bases to the proximal femora. Images are reviewed in the axial, sagittal, and coronal planes. IV contrast was not administered for this examination. A dose lowering technique was utilized adhering to the principles of ALARA. CT DOSE: 1082.85 mGy.cm FINDINGS: Lung bases: The heart is top normal in size and without pericardial effusion. The mitral annulus is densely calcified. There is a small hiatal hernia. The lung bases are clear noting bibasilar scarring/atelectasis. Liver: The unenhanced liver is normal in size, contour, and attenuation. There is no intrahepatic biliary ductal dilatation. Gallbladder: Surgically absent noting clips in the gallbladder fossa. Spleen: Normal in size and attenuation. Pancreas: Unremarkable. Adrenal glands: Unremarkable. Kidneys: The unenhanced kidneys are normal in size and without hydronephrosis. No renal calculi are identified and there is no ureteral stone. There is no evidence of contour deforming renal mass lesion. Abdominal vasculature: The abdominal aorta is normal in course and caliber noting advanced atherosclerotic calcification. Bowel: There are scattered colonic diverticula without CT evidence of acute diverticulitis. No bowel obstruction is seen. The appendix is well-visualized and normal. Peritoneum: There is no intraperitoneal free air or abdominal ascites. There is a small fat-containing umbilical hernia. Midline skin clips are noted in the pelvis. Lymphadenopathy: None. Pelvic viscera: The bladder, uterus, and adnexa are normal as visualized. Skeletal structures: The skeletal structures are osteopenic. There is mild to moderate lumbosacral spondylosis and scoliosis. No lytic or blastic lesions are seen. IMPRESSION: 1. No acute infectious or inflammatory findings are identified in the abdomen or pelvis. 2. Midline skin clips are noted in the pelvis. Correlate with the surgical history. 3. Additional findings as above. ACT 112: Negative or not required by law. Electronically signed by: Guy Mueller M.D. 11/09/2023 9:34 AM Abdomen/Pelvis CTA 11/09/23 09:52 CT ANGIOGRAM OF THE ABDOMEN AND PELVIS CLINICAL HISTORY: Left flank pain. COMPARISON STUDY: Unenhanced abdominal CT dated 11/09/2023. TECHNIQUE: Following the IV administration of 116 cc of Optiray 320, CT angiogram of the abdomen and pelvis was performed from the lung bases the proximal femora. Images are reviewed in the axial, sagittal, and coronal planes. 3-D MIPS images are created and assessed. IV contrast was administered without complication. A dose lowering technique was utilized adhering to the principles of ALARA. CT DOSE: 981.82 mGy.cm FINDINGS: Lower chest: The heart is top normal in size and without pericardial effusion. The mitral annulus is densely calcified. The lung bases are clear noting bibasilar scarring/atelectasis. A small hiatal hernia is noted. Liver: The contrast-enhanced liver is normal in size, contour, and attenuation. There is no intrahepatic biliary ductal dilatation. Gallbladder: Surgically absent noting clips in the gallbladder fossa. Spleen: Normal in size and attenuation noting heterogeneous arterial phase enhancement. Pancreas: Unremarkable. Adrenal glands: Unremarkable. Kidneys: The contrast enhanced kidneys are normal in size and without hydronephrosis. The kidneys enhance symmetrically. A retroaortic left renal vein is incidentally noted. Abdominal aorta and iliac arteries: The abdominal aorta is normal in course and caliber noting moderate to advanced atherosclerotic calcification. The abdominal aorta is widely patent. No dissection is seen. The iliac arteries are widely patent bilaterally. Major branches of the abdominal aorta: The celiac trunk, superior mesenteric, and inferior mesenteric arteries are widely patent. Hepatic arterial anatomy is conventional. The splenic artery is patent. There are single bilateral renal arteries. Mild stenosis is seen at the origin of both renal arteries. Bowel: There are scattered colonic diverticula without CT evidence of acute diverticulitis. No bowel obstruction is seen. The appendix is well-visualized and normal. Peritoneum: There is no intraperitoneal free air or abdominal ascites. There is a small fat-containing umbilical hernia. Midline skin clips are noted in the pelvis. Lymphadenopathy: None. Pelvic viscera: The bladder, uterus, and adnexa are normal as visualized. Skeletal structures: The skeletal structures are osteopenic. There is mild to moderate lumbosacral spondylosis and scoliosis. No destructive bony lesions are seen. IMPRESSION: 1. No acute infectious or inflammatory findings are identified in the abdomen or pelvis. 2. There is mild stenosis at the origin of both renal arteries. 3. Otherwise unremarkable CT angiogram of the abdominal aorta and its major branches. 4. Midline skin clips are noted in the pelvis. Correlate with the surgical history. 5. Additional findings as above. ACT 112: Negative or not required by law. Electronically signed by: Guy Mueller M.D. 11/09/2023 12:19 PM Discharge Plan Visit Data Chief Complaint: Back Injury/Pain ED Provider: Kofi Wayne Discharge Problem: Acute left flank pain, Nausea & vomiting Patient Disposition: Admitted As Inpatient Discharge Instructions Interventions: ED Discharge Assessment Last Done: 11/09/23 18:09
[2023-11-09] MEDS: METOCLOPRAMIDE HCL INJ 5 MG/ML 2 ML VIAL IV ONE ×2 (09:56→11:24)
[2023-11-09] MEDS: KETOROLAC TROMETHAMINE 15 MG/ML VIAL IV ONE (10:00)
[2023-11-09] MEDS: OPTIRAY 320 125ml IV ONE (10:17)
[2023-11-09 11:32] LABS: Appearance Urine Clear (Clear); Bacteria Urine Automated Negative (Negative); Bilirubin Urine Negative (Negative); Blood Urine Trace (Negative); Cast Urine Automated 0 /lpf (0-5); Color Urine Yellow; Epithelial Cell Urine Auto 0-5 /lpf (0-5); Glucose Urine UA Trace (Negative); Ketones Urine 1+ (Negative); Leukocyte Esterase Urine Negative (Negative); Nitrite Urine Negative (Negative); Protein Urine Negative (Negative); RBC Urine Automated 0-4 /hpf (0-4); Specific Gravity Urine 1.023 (1.000-1.030); Urobilinogen Urine Negative (Negative); pH Urine 7.5 (4.5-7.5)
--- NOTE | 2023-11-09 12:22 | CT Scan Report ---
CT ANGIOGRAM OF THE ABDOMEN AND PELVIS CLINICAL HISTORY: Left flank pain. COMPARISON STUDY: Unenhanced abdominal CT dated 11/09/2023. TECHNIQUE: Following the IV administration of 116 cc of Optiray 320, CT angiogram of the abdomen and pelvis was performed from the lung bases the proximal femora. Images are reviewed in the axial, sagit brady, and coronal planes. 3-D MIPS images are created and assessed. IV contrast was administered witho ut complication. A dose lowering technique was utilized adhering to the principles of ALARA. CT DOSE: 981.82 mGy.cm FINDINGS: Lower chest: The heart is top normal in size and without pericardial effusion. The mitral annulus is densely calcified. The lung bases are clear noting bibasilar scarring/atelectasis. A small hiatal her dev is noted. Liver: The contrast-enhanced liver is normal in size, contour, and attenuation. There is no intrahepa tic biliary ductal dilatation. Gallbladder: Surgically absent noting clips in the gallbladder fossa. Spleen: Normal in size and attenuation noting heterogeneous arterial phase enhancement. Pancreas: Unremarkable. Adrenal glands: Unremarkable. Kidneys: The contrast enhanced kidneys are normal in size and without hydronephrosis. The kidneys enh ance symmetrically. A retroaortic left renal vein is incidentally noted. Abdominal aorta and iliac arteries: The abdominal aorta is normal in course and caliber noting modera te to advanced atherosclerotic calcification. The abdominal aorta is widely patent. No dissection is seen. The iliac arteries are widely patent bilaterally. Major branches of the abdominal aorta: The celiac trunk, superior mesenteric, and inferior mesenteric arteries are widely patent. Hepatic arterial anatomy is conventional. The splenic artery is patent. There are single bilateral renal arteries. Mild stenosis is seen at the origin of both renal arterie s. Bowel: There are scattered colonic diverticula without CT evidence of acute diverticulitis. No bowel obstruction is seen. The appendix is well-visualized and normal. Peritoneum: There is no intraperitoneal free air or abdominal ascites. There is a small fat-containin g umbilical hernia. Midline skin clips are noted in the pelvis. Lymphadenopathy: None. Pelvic viscera: The bladder, uterus, and adnexa are normal as visualized. Skeletal structures: The skeletal structures are osteopenic. There is mild to moderate lumbosacral sp ondylosis and scoliosis. No destructive bony lesions are seen. IMPRESSION: 1. No acute infectious or inflammatory findings are identified in the abdomen or pelvis. 2. There is mild stenosis at the origin of both renal arteries. 3. Otherwise unremarkable CT angiogram of the abdominal aorta and its major branches. 4. Midline skin clips are noted in the pelvis. Correlate with the surgical history. 5. Additional findings as above. ACT 112: Negative or not required by law. Electronically signed by: Guy Mueller M.D. 11/09/2023 12:19 PM
[2023-11-09] MEDS: PROMETHAZINE 12.5 MG/50.5 ML NSS IV ONE (13:18)
[2023-11-09] MEDS: PROMETHAZINE 12.5 MG/50.5 ML BAG IV STA (13:26)
[2023-11-09] MEDS: fentaNYL citrate PF 100 MCG/2 ML VIAL IV PRN (13:41)
[2023-11-09] MEDS: GADOBUTROL 7.5ML VIAL IV ONE (14:15)
--- NOTE | 2023-11-09 15:59 | Magnetic Resonance Report ---
MRI OF THE LUMBAR SPINE COMBO CLINICAL HISTORY: Low back pain. COMPARISON STUDY: Abdominal CT scan was performed the same day 11/09/23. Lumbar spine radiographs sujey ed 11/07/23. TECHNIQUE: MRI of the lumbar spine is performed utilizing various T1 and T2-weighted sequences in the axial and sagittal planes. Contrast-enhanced sequences are acquired following the IV administration of 7 mL of Gadavist. FINDINGS: Lumbar spine: Vertebral body height and alignment are maintained throughout the lumbar spine. Anterio r and lateral marginal osteophytes are seen throughout. Mild lumbar levocurvature is centered at L4. The transverse and spinous processes appear intact. There is no evidence of spondylolysis. Tiny heman giomas are noted in the bodies of L3 and L4. No destructive bony lesion is seen. There is mild chroni c degenerative endplate change seen at several levels. Mild endplate edema is noted at T12-L1 and L1- L2. Intervertebral discs: Disc desiccation and mild loss of height is seen throughout the lumbar spine. Spinal cord: The visualized spinal cord is normal in morphology and signal intensity. The conus medul german terminates at the L1-L2 interspace. The nerve roots of the cauda equina are normal in morpholog y. No abnormal contrast enhancement is identified. L1-L2: There is minimal posterior disc bulge, which abuts the transiting nerve roots. No significant acquired compromise of the central canal is seen. The neural foramina are patent. L2-L3: There is minimal posterior disc bulge. The central canal and neural foramina are patent. L3-L4: There is minimal posterior disc bulge. This abuts the transiting nerve roots. No significant a cquired compromise of the central canal is seen. The neural foramina are patent. L4-L5: The central canal is clear. Facet arthropathy is of no consequence. The neural foramina are pa tent. L5-S1: There is minimal posterior disc bulge with annular fissure. This abuts the transiting nerve ro ots. There is no significant acquired compromise of the central canal. Lateral disc bulge is seen aziza aterally, right greater than left. This contributes to bilateral subarticular stenosis and likely abu ts the exiting right L5 nerve root. In conjunction with facet arthropathy, there is mild right neural foraminal stenosis. The left neural foramen is clear. Sacrum: The visualized sacrum is normal in morphology and signal intensity. A 13 mm Tarlov cyst is no eric at the level of S2. Soft tissues: There is mild fatty atrophy of the paraspinous musculature. The retroperitoneal structu res are grossly unremarkable but incompletely evaluated. IMPRESSION: 1. No acute bony abnormality is seen involving the lumbar spine. 2. Degenerative disc disease with mild lumbosacral spondylosis and scoliosis as above. See discussion for detailed level by level analysis. 3. No abnormal postcontrast enhancement is identified. Dictated: 11/09/2023 2:35 PM Transcribed: 11/09/2023 3:54 PM Juan Manuel [id number] [email or web address] Electronically signed by: Guy Mueller M.D. 11/09/2023 3:57 PM
--- NOTE | 2023-11-09 16:56 | History & Physical Report ---
Date of Service November 09, 2023 Assessment & Plan (1) Intractable back pain: Plan: Suspect L1 radiculopathy given lack of alternative pathology found Monitor if shingles rash develops as alternative explanation Acetaminophen 1 g p.o. TID Toradol 15 mg q.6 hourly PRN second line Tramadol 50 mg q.6 hourly PRN third-line Morphine 2 to 4 mg q.4 hourly PRN fourth line Will avoid steroids initially due to her vomiting but consider dexamethasone tomorrow if pain not controlled Discussed benefits and risk of hospitalization vs. management at home and since she does not feel safe at home at the present time will observe in hospital and have PT/OT see her. (2) Nausea & vomiting: Plan: Suspect secondary to pain and opiates, no bowel obstruction or other pathology on CT without contrast and angio Start famotidine 20mg IV BID Ondansetron 1st line for nausea Compazine 2nd line (3) Hypertension: Plan: Continue lisinopril (4) Dyslipidemia: Plan: Continue atorvastatin Plan VTE Prophylaxis - low risk Diet - regular Disposition - observation to med/surg (2 midnight rule) Admission and Anticipated Discharge Date Admission Date: Nov 09, 2023 History of Present Illness Chief Complaint: Back/groin pain, nausea/vomiting Primary Care Provider: Leonard Pollard DO Krystle Ball is a 73 year old female who presents to the ER with back/abdominal pain. She reports the pain started on Saturday without trauma as she just got up from her chair. and has been coming and going since then. Significantly worse last night into this morning with severity 10/10 pain when arriving at the ER, currently 6/10 after multiple opiates given and she continues to have nausea and vomiting. Pain starts in her lower back and radiates around the front to her groin, worse on palpation or any movement - especially worse on standing. She lives with her daughter who is at bedside but she currently does not feel safe to go home. No falls, fever, chills, rash, urinary, respiratory symptoms. She feels the nausea and vomiting is related to the pain. She reports LLQ/groin abdominal pain which comes from her back. No diarrhea/constipation. Allergies Allergy/AdvReac Type Severity Reaction Status Date / Time animal dander Allergy Verified 11/09/23 09:15 codeine Allergy Verified 11/09/23 09:15 house dust Allergy Verified 11/09/23 09:15 mold Allergy Verified 11/09/23 09:15 tree and shrub pollen Allergy Verified 11/09/23 09:15 Home Medications Medication Instructions Recorded Confirmed Type loratadine 10 mg capsule 10 mg PO DAILY PRN Allergy Symptoms 04/06/19 11/09/23 History cranberry 500 mg capsule 500 mg PO DAILY 05/04/21 11/09/23 History omega-3 fatty acids 500 mg capsule 500 mg PO DAILY 09/05/22 11/09/23 History atorvastatin 10 mg tablet 10 mg PO DAILY 04/08/23 11/09/23 History multivitamin (Multiple Vitamins 1 tab PO DAILY 04/08/23 11/09/23 History tablet) cholecalciferol (vitamin D3) 25 25 mcg PO DAILY 04/17/23 11/09/23 History mcg (1,000 unit) capsule fluticasone propionate 50 2 spray intranasal DAILY PRN 04/17/23 11/09/23 History mcg/actuation nasal Allergy Symptoms spray,suspension (Flonase Allergy Relief) olopatadine 0.2 % eye drops 1 drp ophthalmic (eye) QAM PRN 04/17/23 11/09/23 History (Pataday Once Daily Relief) IRRITATION lisinopril 20 mg tablet 20 mg PO DAILY #90 tabs 04/23/23 11/09/23 Rx albuterol sulfate 90 mcg/actuation 2 puff inhalation Q6H PRN 10/17/23 11/09/23 Rx aerosol inhaler shortness of breath or wheezing #6.7 grams cyclobenzaprine 5 mg tablet 5 mg PO TID PRN muscle spasm #30 11/07/23 11/09/23 Rx tabs Past Med/Surg History Medical History (Updated 11/10/23 @ 07:02 by Grupo Hilton MD) Dyslipidemia Hypertension Varicose veins of both lower extremities without ulcer or inflammation History of asthma Surgical History H/O laparoscopy H/O varicose vein ligation H/O tubal ligation left leg, 1991 Hx of cholecystectomy 2004 H/O section 1971, 1975 Family History Mother Pancreatic cancer Gallbladder disease Kidney disease Father Cardiac disorder Myocardial infarction Brother Malignant neoplasm of brain Denies family history of Ovarian cancer Prostate cancer Breast cancer Colorectal cancer Social History Smoking Status: Never smoker Second Hand Exposure: No; Do You Dip or Chew Tobacco: No; Hx Alcohol Use: Yes Alcohol type: wine Alcohol Intake Frequency: Monthly or Less Alcohol Intake Frequency Comment: social Hx Substance Use: No Preferred Language: Faroese Communication Ability: Effective Visual Impairment: Limited Hearing Ability: Normal Comparator Operator Required: No Beliefs That Will Affect Care: None marital status: Current Living Situation: Family Current Living Situation Comment: with daughter current occupational status: retired 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[employer], [employer] How many Children do You have: 2 Other Information That Helps Us Care for You: No Feels Safe at Home: Yes Safety Concerns: Feels Safe At This Time Childhood Exposure to Second-Hand Smoke: Yes caffeine: Yes (coffee and sometimes tea ) Dental Care, Regularly: Yes Physical Activity Frequency: 5-6 Times per Week Seatbelt Use: always Sunscreen Use: Yes Assistive Devices: Glasses Review of Systems Review of Systems: All systems reviewed & are unremarkable except as noted in HPI & below Physical Exam Constitutional: WD/WN, vitals as above Eyes: PERRL, conjunctivae normal, anicteric sclerae ENMT: external ear and nose normal, oropharynx normal Respiratory: normal respiratory effort, lungs clear to auscultation Cardiovascular: RRR, no murmur, no edema Gastrointestinal (Abdomen): Inspection/Auscultation: abdomen normal to inspection; abdomen not distended Percussion/Palpation: + abdomen tender (LLQ) and abdomen soft; no guarding and abdomen not rigid Musculoskeletal: no cyanosis or clubbing, extremities motor strength 5/5 Spine: + paraspinal tenderness (left lumbar region) No pain on hip rotation LLE power 5/5 throughout Skin: no rashes, warm and dry Neurologic: moves all extremities and awake; not confused Psychiatric: A+Ox3, euthymic affect Results & Data Results & Data Vital Signs (Past 12 Hours) Vital Signs Temp Pulse Resp BP Pulse Ox O2 Del Method O2 Flow Rate 11/09/23 15:00 84 19 160/98 H 94 11/09/23 14:41 87 20 94 11/09/23 14:41 85 24 160/98 H 94 Room Air 02/10/24 14:40 88 22 11/09/23 13:21 102 H 16 156/100 H 95 11/09/23 13:06 102 H 16 11/09/23 13:00 105 H 11 L 95 11/09/23 12:45 105 H 11/09/23 12:30 93 H 21 93 11/09/23 11:27 97 H 19 177/97 H 88 L 11/09/23 10:55 118 H 24 158/114 H 92 Room Air 11/09/23 10:01 116 H 14 149/111 H 96 Nasal Cannula 2 11/09/23 09:02 72 175/103 H 95 Nasal Cannula 2 11/09/23 08:31 74 11/09/23 08:27 74 19 158/100 H 96 Room Air 11/09/23 08:23 72 20 96 Room Air 11/09/23 07:43 36.6 C 86 20 188/98 H 97 Room Air Laboratory Results Abnormal lab results 11/09/23 11/09/23 Range/Units 07:50 11:09 Neut # (Auto) 7.05 H (1.40-6.50) K/uL Izard # (Auto) 0.66 H (0.11-0.59) K/uL BUN/Creatinine Ratio 21.5 H (10-20) Glucose 117 H (70-99(Fasting)) mg/dl Urine Glucose (UA) Trace H (Negative) Urine Ketones 1+ H (Negative) Urine Blood Trace H (Negative) Diagnostic Findings CT SCAN OF THE ABDOMEN AND PELVIS WITHOUT IV CONTRAST CLINICAL HISTORY: Left lower quadrant and left flank pain. COMPARISON STUDY: No priors. TECHNIQUE: CT scan of the abdomen and pelvis is performed from the lung bases to the proximal femora. Images are reviewed in the axial, sagittal, and coronal planes. IV contrast was not administered for this examination. A dose lowering technique was utilized adhering to the principles of ALARA. CT DOSE: 1082.85 mGy.cm FINDINGS: Lung bases: The heart is top normal in size and without pericardial effusion. The mitral annulus is densely calcified. There is a small hiatal hernia. The lung bases are clear noting bibasilar scarring/atelectasis. Liver: The unenhanced liver is normal in size, contour, and attenuation. There is no intrahepatic biliary ductal dilatation. Gallbladder: Surgically absent noting clips in the gallbladder fossa. Spleen: Normal in size and attenuation. Pancreas: Unremarkable. Adrenal glands: Unremarkable. Kidneys: The unenhanced kidneys are normal in size and without hydronephrosis. No renal calculi are identified and there is no ureteral stone. There is no evidence of contour deforming renal mass lesion. Abdominal vasculature: The abdominal aorta is normal in course and caliber noting advanced atherosclerotic calcification. Bowel: There are scattered colonic diverticula without CT evidence of acute diverticulitis. No bowel obstruction is seen. The appendix is well-visualized and normal. Peritoneum: There is no intraperitoneal free air or abdominal ascites. There is a small fat-containing umbilical hernia. Midline skin clips are noted in the pelvis. Lymphadenopathy: None. Pelvic viscera: The bladder, uterus, and adnexa are normal as visualized. Skeletal structures: The skeletal structures are osteopenic. There is mild to moderate lumbosacral spondylosis and scoliosis. No lytic or blastic lesions are seen. IMPRESSION: 1. No acute infectious or inflammatory findings are identified in the abdomen or pelvis. 2. Midline skin clips are noted in the pelvis. Correlate with the surgical history. 3. Additional findings as above. CT ANGIOGRAM OF THE ABDOMEN AND PELVIS CLINICAL HISTORY: Left flank pain. COMPARISON STUDY: Unenhanced abdominal CT dated 11/09/2023. TECHNIQUE: Following the IV administration of 116 cc of Optiray 320, CT angiogram of the abdomen and pelvis was performed from the lung bases the proximal femora. Images are reviewed in the axial, sagittal, and coronal planes. 3-D MIPS images are created and assessed. IV contrast was administered without complication. A dose lowering technique was utilized adhering to the principles of ALARA. CT DOSE: 981.82 mGy.cm FINDINGS: Lower chest: The heart is top normal in size and without pericardial effusion. The mitral annulus is densely calcified. The lung bases are clear noting bibasilar scarring/atelectasis. A small hiatal hernia is noted. Liver: The contrast-enhanced liver is normal in size, contour, and attenuation. There is no intrahepatic biliary ductal dilatation. Gallbladder: Surgically absent noting clips in the gallbladder fossa. Spleen: Normal in size and attenuation noting heterogeneous arterial phase enhancement. Pancreas: Unremarkable. Adrenal glands: Unremarkable. Kidneys: The contrast enhanced kidneys are normal in size and without hydronephrosis. The kidneys enhance symmetrically. A retroaortic left renal vein is incidentally noted. Abdominal aorta and iliac arteries: The abdominal aorta is normal in course and caliber noting moderate to advanced atherosclerotic calcification. The abdominal aorta is widely patent. No dissection is seen. The iliac arteries are widely patent bilaterally. Major branches of the abdominal aorta: The celiac trunk, superior mesenteric, and inferior mesenteric arteries are widely patent. Hepatic arterial anatomy is conventional. The splenic artery is patent. There are single bilateral renal arteries. Mild stenosis is seen at the origin of both renal arteries. Bowel: There are scattered colonic diverticula without CT evidence of acute diverticulitis. No bowel obstruction is seen. The appendix is well-visualized and normal. Peritoneum: There is no intraperitoneal free air or abdominal ascites. There is a small fat-containing umbilical hernia. Midline skin clips are noted in the pelvis. Lymphadenopathy: None. Pelvic viscera: The bladder, uterus, and adnexa are normal as visualized. Skeletal structures: The skeletal structures are osteopenic. There is mild to moderate lumbosacral spondylosis and scoliosis. No destructive bony lesions are seen. IMPRESSION: 1. No acute infectious or inflammatory findings are identified in the abdomen or pelvis. 2. There is mild stenosis at the origin of both renal arteries. 3. Otherwise unremarkable CT angiogram of the abdominal aorta and its major branches. 4. Midline skin clips are noted in the pelvis. Correlate with the surgical history. 5. Additional findings as above. MRI OF THE LUMBAR SPINE COMBO CLINICAL HISTORY: Low back pain. COMPARISON STUDY: Abdominal CT scan was performed the same day 11/09/23. Lumbar spine radiographs dated 11/07/23. TECHNIQUE: MRI of the lumbar spine is performed utilizing various T1 and T2- weighted sequences in the axial and sagittal planes. Contrast-enhanced sequences are acquired following the IV administration of 7 mL of Gadavist. FINDINGS: Lumbar spine: Vertebral body height and alignment are maintained throughout the lumbar spine. Anterior and lateral marginal osteophytes are seen throughout. Mild lumbar levocurvature is centered at L4. The transverse and spinous processes appear intact. There is no evidence of spondylolysis. Tiny hemangiomas are noted in the bodies of L3 and L4. No destructive bony lesion is seen. There is mild chronic degenerative endplate change seen at several levels. Mild endplate edema is noted at T12-L1 and L1-L2. Intervertebral discs: Disc desiccation and mild loss of height is seen throughout the lumbar spine. Spinal cord: The visualized spinal cord is normal in morphology and signal intensity. The conus medullaris terminates at the L1-L2 interspace. The nerve roots of the cauda equina are normal in morphology. No abnormal contrast enhancement is identified. L1-L2: There is minimal posterior disc bulge, which abuts the transiting nerve roots. No significant acquired compromise of the central canal is seen. The neural foramina are patent. L2-L3: There is minimal posterior disc bulge. The central canal and neural foramina are patent. L3-L4: There is minimal posterior disc bulge. This abuts the transiting nerve roots. No significant acquired compromise of the central canal is seen. The n eural foramina are patent. L4-L5: The central canal is clear. Facet arthropathy is of no consequence. The neural foramina are patent. L5-S1: There is minimal posterior disc bulge with annular fissure. This abuts the transiting nerve roots. There is no significant acquired compromise of the central canal. Lateral disc bulge is seen bilaterally, right greater than left. This contributes to bilateral subarticular stenosis and likely abuts the exiting right L5 nerve root. In conjunction with facet arthropathy, there is mild right neural foraminal stenosis. The left neural foramen is clear. Sacrum: The visualized sacrum is normal in morphology and signal intensity. A 13 mm Tarlov cyst is noted at the level of S2. Soft tissues: There is mild fatty atrophy of the paraspinous musculature. The retroperitoneal structures are grossly unremarkable but incompletely evaluated. IMPRESSION: 1. No acute bony abnormality is seen involving the lumbar spine. 2. Degenerative disc disease with mild lumbosacral spondylosis and scoliosis as above. See discussion for detailed level by level analysis. 3. No abnormal postcontrast enhancement is identified. Medications Administered ER Medications Given: Dilaudid 0.5mg IV x2 Ondansetron 4mg IV Normal saline 1000ml bolus Ondansetron 4mg IV Toradol 15mg IV Metoclopramide 5mg IV Fentanyl 50 mcg IV x2 Promethazine 12.5mg IV ECG Rate (beats per minute): 80 Rhythm: normal sinus Findings: + other (pulmonary disease patter, right atrial enlargement); no acute ischemic change Comparison ECG Date: from (April 08, 2024) Change: the following changes noted (Incomplete right bundle block no longer present) Code Status & VTE Plan Code Status Full VTE Prophylaxis Plan VTE Prophylaxis will be ordered: No PG Care Time/CCT Total # of Minutes Spent Total Time Spent: 75 Total Time Spent with Patient: Total time spent is greater than 50% in coordination of care (as documented) at patient's floor/unit and/or counseling patient: Coding Level of Care Code 61004 INT INP/OBS CARE 3/75MIN Diagnoses Intractable back pain M54.9 Nausea & vomiting R11.2 Hypertension I10 Dyslipidemia E78.5
[2023-11-09] MEDS ORDERED: FAMOTIDINE 200 MG/20 ML VIAL IV STA (17:00)
[2023-11-09 17:21] LABS: C Reactive Protein < 0.50 mg/dl (0-0.5)
[2023-11-09] MEDS ORDERED: MoRPHine SULFATE 4 MG/ML 1 ML CARP\\VIAL IV PRN (18:09)
[2023-11-09] MEDS ORDERED: ONDANSETRON INJ 2 MG/ML 2 ML VIAL IV PRN (18:09)
[2023-11-09] MEDS ORDERED: MoRPHine SULFATE 2 MG/ML CARP IV PRN (18:09)
[2023-11-09] MEDS ORDERED: traMADol HCL 50 MG TABLET PO PRN (18:09)
[2023-11-09] MEDS: ACETAMINOPHEN 1,000 MG/100 ML VIAL IV STA (18:32)
[2023-11-09] MEDS ORDERED: FLUTICASONE PROPIONATE NA SPR 16 GM BTL NAE PRN (19:22)
[2023-11-09] MEDS ORDERED: PROCHLORPERAZINE 5 MG in SYRINGE 4 ML IV PRN (19:24)
[2023-11-09] MEDS ORDERED: LORATADINE 10 MG TAB PO PRN (19:30)
[2023-11-09] MEDS: FAMOTIDINE 20MG IV PUSH 20 MG/5 ML SYR IV ONE (22:08)
[2023-11-09] MEDS: ACETAMINOPHEN 500 MG TAB PO SCH (22:10)
[2023-11-10] MEDS: ONDANSETRON INJ 2 MG/ML 2 ML VIAL IV PRN (00:33)
[2023-11-10] MEDS: KETOROLAC TROMETHAMINE 15 MG/ML VIAL IV PRN (00:33)
--- NOTE | 2023-11-10 07:10 | Electrocardiogram Report ---
Test Reason : Blood Pressure : / mmHG Vent. Rate : 080 BPM Atrial Rate : 080 BPM P-R Int : 158 ms QRS Dur : 086 ms QT Int : 420 ms P-R-T Axes : 078 -48 079 degrees QTc Int : 484 ms Normal sinus rhythm Right atrial enlargement Left anterior fascicular block Abnormal ECG When compared with ECG of 08-APR-2023 22:45, Incomplete right bundle branch block is no longer Present Confirmed by Daquan Luna ([id number]) on 11/10/2023 7:10:09 AM Referred By: REFERRED SELF Confirmed By:Malcolm Luna
[2023-11-10 07:50] LABS: Basophils # (auto) 0.04 K/uL (0.00-0.20); Basophils % (auto) 0.4 %; Eosinophils # (auto) 0.02 K/uL (0.00-0.50); Eosinophils % (auto) 0.2 %; Hematocrit (blood only) 44.5 % (37.0-47.0); Hemoglobin 14.8 g/dl (12.0-16.0); Immature Granulocytes # (auto) 0.06 K/uL (0.01-0.20); Immature Granulocytes % (auto) 0.5 %; Lymphocytes # (auto) 2.33 K/uL (1.20-3.40); Lymphocytes % (auto) 21.2 %; Mean Corpuscular Hemoglobin 30.4 pg (25.0-34.0); Mean Corpuscular Hgb Conc 33.3 g/dL (32.0-36.0); Mean Corpuscular Volume 91.4 fL (80.0-100.0); Mean Platelet Volume 9.3 fL (9.4-12.4); Monocytes # (auto) 0.95 K/uL (0.11-0.59); Monocytes % (auto) 8.6 %; Neutrophils # (auto) 7.61 K/uL (1.40-6.50); Neutrophils % (auto) 69.1 %; Platelet Count 302 K/uL (130-400); RDW Coefficient of Variation 12.6 % (11.5-14.5); RDW Standard Deviation 42.2 fL (36.4-46.3); Red Blood Count 4.87 M/uL (4.20-5.40); White Blood Count 11.01 K/ul (4.8-10.8)
[2023-11-10 08:08] LABS: BUN Creatinine Ratio 21.6 (10-20); Calcium 9.2 mg/dl (8.6-10.3); Est GFR (African American) 63.2 ml/min; Est GFR (Non-African American) 54.5 ml/min
--- NOTE | 2023-11-10 08:10 | Hospitalist Progress Note ---
Date of Service November 10, 2023 Assessment & Plan (1) Intractable back pain: Plan: Suspect L1 radiculopathy given lack of alternative pathology found * L5-S1: There is minimal posterior disc bulge with annular fissure. This abuts the transiting nerve roots. There is no significant acquired compromise of the central canal. Lateral disc bulge is seen bilaterally, right greater than left. This contributes to bilateral subarticular stenosis and likely abuts the exiting right L5 nerve root. In conjunction with facet arthropathy, there is mild right neural foraminal stenosis. The left neural foramen is clear. Monitor if shingles rash develops as alternative explanation Acetaminophen 1 g p.o. TID Toradol 15 mg q.6 hourly PRN second line Tramadol 50 mg q.6 hourly PRN third-line Morphine 2 to 4 mg q.4 hourly PRN fourth line Will avoid steroids initially due to her vomiting but consider dexamethasone tomorrow if pain not controlled Discussed benefits and risk of hospitalization vs. management at home and since she does not feel safe at home at the present time will observe in hospital and have PT/OT see her. (2) Nausea & vomiting: Plan: Suspect secondary to pain and opiates, no bowel obstruction or other pathology on CT without contrast and angio Start famotidine 20mg IV BID Ondansetron 1st line for nausea Compazine 2nd line (3) Hypertension: Plan: Continue lisinopril (4) Dyslipidemia: Plan: Continue atorvastatin Plan VTE Prophylaxis - low risk Diet - regular Disposition - observation to med/surg (2 midnight rule) Admission and Anticipated Discharge Date Admission Date: November 09, 2023 Subjective Eval this morning, was having L sided low back pain w/ radiation to her groin. Reports was unsafe to return home given heavily medicated last evening/reaction from the morphine w/ nausea/vomiting/flushing/rash but has completely resolved and on toradol for pain control. Had some reflux but controlled with pepcid. Will see about dc today after eval by therapy. Results & Data Results & Data Vital Signs (Past 12 Hours) Vital Signs Temp Pulse Resp BP Pulse Ox O2 Del Method 11/10/23 07:00 36.8 C 64 16 155/68 H 97 Room Air 11/09/23 21:07 36.8 C 68 16 145/76 H 98 Room Air Laboratory Results 11/10/23 07:32 11/10/23 07:32 Diagnostic Findings Abdomen/Pelvis CT 11/09/23 08:10 CT SCAN OF THE ABDOMEN AND PELVIS WITHOUT IV CONTRAST CLINICAL HISTORY: Left lower quadrant and left flank pain. COMPARISON STUDY: No priors. TECHNIQUE: CT scan of the abdomen and pelvis is performed from the lung bases to the proximal femora. Images are reviewed in the axial, sagittal, and coronal planes. IV contrast was not administered for this examination. A dose lowering technique was utilized adhering to the principles of ALARA. CT DOSE: 1082.85 mGy.cm FINDINGS: Lung bases: The heart is top normal in size and without pericardial effusion. The mitral annulus is densely calcified. There is a small hiatal hernia. The lung bases are clear noting bibasilar scarring/atelectasis. Liver: The unenhanced liver is normal in size, contour, and attenuation. There is no intrahepatic biliary ductal dilatation. Gallbladder: Surgically absent noting clips in the gallbladder fossa. Spleen: Normal in size and attenuation. Pancreas: Unremarkable. Adrenal glands: Unremarkable. Kidneys: The unenhanced kidneys are normal in size and without hydronephrosis. No renal calculi are identified and there is no ureteral stone. There is no evidence of contour deforming renal mass lesion. Abdominal vasculature: The abdominal aorta is normal in course and caliber noting advanced atherosclerotic calcification. Bowel: There are scattered colonic diverticula without CT evidence of acute diverticulitis. No bowel obstruction is seen. The appendix is well-visualized and normal. Peritoneum: There is no intraperitoneal free air or abdominal ascites. There is a small fat-containing umbilical hernia. Midline skin clips are noted in the pelvis. Lymphadenopathy: None. Pelvic viscera: The bladder, uterus, and adnexa are normal as visualized. Skeletal structures: The skeletal structures are osteopenic. There is mild to moderate lumbosacral spondylosis and scoliosis. No lytic or blastic lesions are seen. IMPRESSION: 1. No acute infectious or inflammatory findings are identified in the abdomen or pelvis. 2. Midline skin clips are noted in the pelvis. Correlate with the surgical history. 3. Additional findings as above. ACT 112: Negative or not required by law. Electronically signed by: Guy Mueller M.D. 11/09/2023 9:34 AM Abdomen/Pelvis CTA 11/09/23 09:52 CT ANGIOGRAM OF THE ABDOMEN AND PELVIS CLINICAL HISTORY: Left flank pain. COMPARISON STUDY: Unenhanced abdominal CT dated 11/09/2023. TECHNIQUE: Following the IV administration of 116 cc of Optiray 320, CT angiogram of the abdomen and pelvis was performed from the lung bases the proximal femora. Images are reviewed in the axial, sagittal, and coronal planes. 3-D MIPS images are created and assessed. IV contrast was administered without complication. A dose lowering technique was utilized adhering to the principles of ALARA. CT DOSE: 981.82 mGy.cm FINDINGS: Lower chest: The heart is top normal in size and without pericardial effusion. The mitral annulus is densely calcified. The lung bases are clear noting bibasilar scarring/atelectasis. A small hiatal hernia is noted. Liver: The contrast-enhanced liver is normal in size, contour, and attenuation. There is no intrahepatic biliary ductal dilatation. Gallbladder: Surgically absent noting clips in the gallbladder fossa. Spleen: Normal in size and attenuation noting heterogeneous arterial phase enhancement. Pancreas: Unremarkable. Adrenal glands: Unremarkable. Kidneys: The contrast enhanced kidneys are normal in size and without hydronephrosis. The kidneys enhance symmetrically. A retroaortic left renal vein is incidentally noted. Abdominal aorta and iliac arteries: The abdominal aorta is normal in course and caliber noting moderate to advanced atherosclerotic calcification. The abdominal aorta is widely patent. No dissection is seen. The iliac arteries are widely patent bilaterally. Major branches of the abdominal aorta: The celiac trunk, superior mesenteric, and inferior mesenteric arteries are widely patent. Hepatic arterial anatomy is conventional. The splenic artery is patent. There are single bilateral renal arteries. Mild stenosis is seen at the origin of both renal arteries. Bowel: There are scattered colonic diverticula without CT evidence of acute diverticulitis. No bowel obstruction is seen. The appendix is well-visualized and normal. Peritoneum: There is no intraperitoneal free air or abdominal ascites. There is a small fat-containing umbilical hernia. Midline skin clips are noted in the pelvis. Lymphadenopathy: None. Pelvic viscera: The bladder, uterus, and adnexa are normal as visualized. Skeletal structures: The skeletal structures are osteopenic. There is mild to moderate lumbosacral spondylosis and scoliosis. No destructive bony lesions are seen. IMPRESSION: 1. No acute infectious or inflammatory findings are identified in the abdomen or pelvis. 2. There is mild stenosis at the origin of both renal arteries. 3. Otherwise unremarkable CT angiogram of the abdominal aorta and its major branches. 4. Midline skin clips are noted in the pelvis. Correlate with the surgical history. 5. Additional findings as above. ACT 112: Negative or not required by law. Electronically signed by: Guy Mueller M.D. 11/09/2023 12:19 PM Lumbar Spine MRI 11/09/23 12:28 MRI OF THE LUMBAR SPINE COMBO CLINICAL HISTORY: Low back pain. COMPARISON STUDY: Abdominal CT scan was performed the same day 11/09/23. Lumbar spine radiographs dated 11/07/23. TECHNIQUE: MRI of the lumbar spine is performed utilizing various T1 and T2- weighted sequences in the axial and sagittal planes. Contrast-enhanced sequences are acquired following the IV administration of 7 mL of Gadavist. FINDINGS: Lumbar spine: Vertebral body height and alignment are maintained throughout the lumbar spine. Anterior and lateral marginal osteophytes are seen throughout. Mild lumbar levocurvature is centered at L4. The transverse and spinous processes appear intact. There is no evidence of spondylolysis. Tiny hemangiomas are noted in the bodies of L3 and L4. No destructive bony lesion is seen. There is mild chronic degenerative endplate change seen at several levels. Mild endplate edema is noted at T12-L1 and L1-L2. Intervertebral discs: Disc desiccation and mild loss of height is seen throughout the lumbar spine. Spinal cord: The visualized spinal cord is normal in morphology and signal intensity. The conus medullaris terminates at the L1-L2 interspace. The nerve roots of the cauda equina are normal in morphology. No abnormal contrast enhancement is identified. L1-L2: There is minimal posterior disc bulge, which abuts the transiting nerve roots. No significant acquired compromise of the central canal is seen. The neural foramina are patent. L2-L3: There is minimal posterior disc bulge. The central canal and neural foramina are patent. L3-L4: There is minimal posterior disc bulge. This abuts the transiting nerve roots. No significant acquired compromise of the central canal is seen. The neural foramina are patent. L4-L5: The central canal is clear. Facet arthropathy is of no consequence. The neural foramina are patent. L5-S1: There is minimal posterior disc bulge with annular fissure. This abuts the transiting nerve roots. There is no significant acquired compromise of the central canal. Lateral disc bulge is seen bilaterally, right greater than left. This contributes to bilateral subarticular stenosis and likely abuts the exiting right L5 nerve root. In conjunction with facet arthropathy, there is mild right neural foraminal stenosis. The left neural foramen is clear. Sacrum: The visualized sacrum is normal in morphology and signal intensity. A 13 mm Tarlov cyst is noted at the level of S2. Soft tissues: There is mild fatty atrophy of the paraspinous musculature. The retroperitoneal structures are grossly unremarkable but incompletely evaluated. IMPRESSION: 1. No acute bony abnormality is seen involving the lumbar spine. 2. Degenerative disc disease with mild lumbosacral spondylosis and scoliosis as above. See discussion for detailed level by level analysis. 3. No abnormal postcontrast enhancement is identified. Dictated: 11/09/2023 2:35 PM Transcribed: 11/09/2023 3:54 PM Juan Manuel [id number] [email or web address] Electronically signed by: Guy Mueller M.D. 11/09/2023 3:57 PM PG Care Time/CCT Total # of Minutes Spent Total Time Spent with Patient: Total time spent is greater than 50% in coordination of care (as documented) at patient's floor/unit and/or counseling patient: Coding Diagnoses Intractable back pain M54.9 Nausea & vomiting R11.2 Hypertension I10 Dyslipidemia E78.5
[2023-11-10] MEDS: FAMOTIDINE 20 MG in SYRINGE 3 ML IV SCH (08:22)
[2023-11-10] MEDS: ATORVASTATIN 10 MG TAB PO SCH (08:22)
[2023-11-10] MEDS: lisinopril 20 MG TAB PO SCH (08:22)
--- NOTE | 2023-11-10 11:26 | Discharge Summary ---
Date of Service November 10, 2023 Admission HPI Per Admitting Provider Krystle Ball is a 73 year old female who presents to the ER with back/abdominal pain. She reports the pain started on Saturday without trauma as she just got up from her chair. and has been coming and going since then. Significantly worse last night into this morning with severity 10/10 pain when arriving at the ER, currently 6/10 after multiple opiates given and she continues to have nausea and vomiting. Pain starts in her lower back and radiates around the front to her groin, worse on palpation or any movement - especially worse on standing. She lives with her daughter who is at bedside but she currently does not feel safe to go home. No falls, fever, chills, rash, urinary, respiratory symptoms. She feels the nausea and vomiting is related to the pain. She reports LLQ/groin abdominal pain which comes from her back. No diarrhea/constipation. Admission Exam Per Admitting Provider Constitutional: WD/WN, vitals as above Eyes: PERRL, conjunctivae normal, anicteric sclerae ENMT: external ear and nose normal, oropharynx normal Respiratory: normal respiratory effort, lungs clear to auscultation Cardiovascular: RRR, no murmur, no edema Gastrointestinal (Abdomen): Inspection/Auscultation: abdomen normal to inspection; abdomen not distended Percussion/Palpation: + abdomen tender (LLQ) and abdomen soft; no guarding and abdomen not rigid Musculoskeletal: no cyanosis or clubbing, extremities motor strength 5/5 Spine: + paraspinal tenderness (left lumbar region) No pain on hip rotation LLE power 5/5 throughout Skin: no rashes, warm and dry Neurologic: moves all extremities and awake; not confused Psychiatric: A+Ox3, euthymic affect Principal Diagnosis Lumbar Radiculopathy, intractable back pain Discharge Exam General: WD/WN female sitting up in bed, reports much improved/wanting to go home, NAD Head atraumatic, normocephalic, mmm, trachea midline Resp: even/unlabored, no w/c/r, 97% on RA CV: RRR, no signifciant mrg, no pitting edema/calf tenderness GI: +BS, soft/NT ; no bustos MSK/Neuro: no focal deficits, no slurred speech, answering questions appropriately some paraspinal muscle tenderness however no weakness b/l LE, d orsiflexion/plantar flexion intact 5/5 strength testing to LE without increased discomfort Psych: AOx3, cooperative Skin: no evidence for shingles at present time Discharge Data Allergies Allergy/AdvReac Type Severity Reaction Status Date / Time animal dander Allergy Verified 11/09/23 09:15 codeine Allergy Verified 11/09/23 09:15 house dust Allergy Verified 11/09/23 09:15 mold Allergy Verified 11/09/23 09:15 tree and shrub pollen Allergy Verified 11/09/23 09:15 Ordered Studies Abdomen/Pelvis CT 11/09/23 08:10 CT SCAN OF THE ABDOMEN AND PELVIS WITHOUT IV CONTRAST CLINICAL HISTORY: Left lower quadrant and left flank pain. COMPARISON STUDY: No priors. TECHNIQUE: CT scan of the abdomen and pelvis is performed from the lung bases to the proximal femora. Images are reviewed in the axial, sagittal, and coronal planes. IV contrast was not administered for this examination. A dose lowering technique was utilized adhering to the principles of ALARA. CT DOSE: 1082.85 mGy.cm FINDINGS: Lung bases: The heart is top normal in size and without pericardial effusion. The mitral annulus is densely calcified. There is a small hiatal hernia. The lung bases are clear noting bibasilar scarring/atelectasis. Liver: The unenhanced liver is normal in size, contour, and attenuation. There is no intrahepatic biliary ductal dilatation. Gallbladder: Surgically absent noting clips in the gallbladder fossa. Spleen: Normal in size and attenuation. Pancreas: Unremarkable. Adrenal glands: Unremarkable. Kidneys: The unenhanced kidneys are normal in size and without hydronephrosis. No renal calculi are identified and there is no ureteral stone. There is no evidence of contour deforming renal mass lesion. Abdominal vasculature: The abdominal aorta is normal in course and caliber noting advanced atherosclerotic calcification. Bowel: There are scattered colonic diverticula without CT evidence of acute diverticulitis. No bowel obstruction is seen. The appendix is well-visualized and normal. Peritoneum: There is no intraperitoneal free air or abdominal ascites. There is a small fat-containing umbilical hernia. Midline skin clips are noted in the pelvis. Lymphadenopathy: None. Pelvic viscera: The bladder, uterus, and adnexa are normal as visualized. Skeletal structures: The skeletal structures are osteopenic. There is mild to moderate lumbosacral spondylosis and scoliosis. No lytic or blastic lesions are seen. IMPRESSION: 1. No acute infectious or inflammatory findings are identified in the abdomen or pelvis. 2. Midline skin clips are noted in the pelvis. Correlate with the surgical history. 3. Additional findings as above. ACT 112: Negative or not required by law. Electronically signed by: Guy Mueller M.D. 11/09/2023 9:34 AM Abdomen/Pelvis CTA 11/09/23 09:52 CT ANGIOGRAM OF THE ABDOMEN AND PELVIS CLINICAL HISTORY: Left flank pain. COMPARISON STUDY: Unenhanced abdominal CT dated 11/09/2023. TECHNIQUE: Following the IV administration of 116 cc of Optiray 320, CT angiogram of the abdomen and pelvis was performed from the lung bases the proximal femora. Images are reviewed in the axial, sagittal, and coronal planes. 3-D MIPS images are created and assessed. IV contrast was administered without complication. A dose lowering technique was utilized adhering to the principles of ALARA. CT DOSE: 981.82 mGy.cm FINDINGS: Lower chest: The heart is top normal in size and without pericardial effusion. The mitral annulus is densely calcified. The lung bases are clear noting bibasilar scarring/atelectasis. A small hiatal hernia is noted. Liver: The contrast-enhanced liver is normal in size, contour, and attenuation. There is no intrahepatic biliary ductal dilatation. Gallbladder: Surgically absent noting clips in the gallbladder fossa. Spleen: Normal in size and attenuation noting heterogeneous arterial phase enhancement. Pancreas: Unremarkable. Adrenal glands: Unremarkable. Kidneys: The contrast enhanced kidneys are normal in size and without hydronephrosis. The kidneys enhance symmetrically. A retroaortic left renal vein is incidentally noted. Abdominal aorta and iliac arteries: The abdominal aorta is normal in course and caliber noting moderate to advanced atherosclerotic calcification. The abdominal aorta is widely patent. No dissection is seen. The iliac arteries are widely patent bilaterally. Major branches of the abdominal aorta: The celiac trunk, superior mesenteric, and inferior mesenteric arteries are widely patent. Hepatic arterial anatomy is conventional. The splenic artery is patent. There are single bilateral renal arteries. Mild stenosis is seen at the origin of both renal arteries. Bowel: There are scattered colonic diverticula without CT evidence of acute diverticulitis. No bowel obstruction is seen. The appendix is well-visualized and normal. Peritoneum: There is no intraperitoneal free air or abdominal ascites. There is a small fat-containing umbilical hernia. Midline skin clips are noted in the pelvis. Lymphadenopathy: None. Pelvic viscera: The bladder, uterus, and adnexa are normal as visualized. Skeletal structures: The skeletal structures are osteopenic. There is mild to moderate lumbosacral spondylosis and scoliosis. No destructive bony lesions are seen. IMPRESSION: 1. No acute infectious or inflammatory findings are identified in the abdomen or pelvis. 2. There is mild stenosis at the origin of both renal arteries. 3. Otherwise unremarkable CT angiogram of the abdominal aorta and its major branches. 4. Midline skin clips are noted in the pelvis. Correlate with the surgical history. 5. Additional findings as above. ACT 112: Negative or not required by law. Electronically signed by: Guy Mueller M.D. 11/09/2023 12:19 PM Lumbar Spine MRI 11/09/23 12:28 MRI OF THE LUMBAR SPINE COMBO CLINICAL HISTORY: Low back pain. COMPARISON STUDY: Abdominal CT scan was performed the same day 11/09/23. Lumbar spine radiographs dated 11/07/23. TECHNIQUE: MRI of the lumbar spine is performed utilizing various T1 and T2- weighted sequences in the axial and sagittal planes. Contrast-enhanced sequences are acquired following the IV administration of 7 mL of Gadavist. FINDINGS: Lumbar spine: Vertebral body height and alignment are maintained throughout the lumbar spine. Anterior and lateral marginal osteophytes are seen throughout. Mild lumbar levocurvature is centered at L4. The transverse and spinous processes appear intact. There is no evidence of spondylolysis. Tiny hemangiomas are noted in the bodies of L3 and L4. No destructive bony lesion is seen. There is mild chronic degenerative endplate change seen at several levels. Mild endplate edema is noted at T12-L1 and L1-L2. Intervertebral discs: Disc desiccation and mild loss of height is seen throughout the lumbar spine. Spinal cord: The visualized spinal cord is normal in morphology and signal intensity. The conus medullaris terminates at the L1-L2 interspace. The nerve roots of the cauda equina are normal in morphology. No abnormal contrast enhancement is identified. L1-L2: There is minimal posterior disc bulge, which abuts the transiting nerve roots. No significant acquired compromise of the central canal is seen. The neural foramina are patent. L2-L3: There is minimal posterior disc bulge. The central canal and neural foramina are patent. L3-L4: There is minimal posterior disc bulge. This abuts the transiting nerve roots. No significant acquired compromise of the central canal is seen. The neural foramina are patent. L4-L5: The central canal is clear. Facet arthropathy is of no consequence. The neural foramina are patent. L5-S1: There is minimal posterior disc bulge with annular fissure. This abuts the transiting nerve roots. There is no significant acquired compromise of the central canal. Lateral disc bulge is seen bilaterally, right greater than left. This contributes to bilateral subarticular stenosis and likely abuts the exiting right L5 nerve root. In conjunction with facet arthropathy, there is mild right neural foraminal stenosis. The left neural foramen is clear. Sacrum: The visualized sacrum is normal in morphology and signal intensity. A 13 mm Tarlov cyst is noted at the level of S2. Soft tissues: There is mild fatty atrophy of the paraspinous musculature. The retroperitoneal structures are grossly unremarkable but incompletely evaluated. IMPRESSION: 1. No acute bony abnormality is seen involving the lumbar spine. 2. Degenerative disc disease with mild lumbosacral spondylosis and scoliosis as above. See discussion for detailed level by level analysis. 3. No abnormal postcontrast enhancement is identified. Dictated: 11/09/2023 2:35 PM Transcribed: 11/09/2023 3:54 PM Juan Manuel [id number] [email or web address] Electronically signed by: Guy Mueller M.D. 11/09/2023 3:57 PM Hospital Course (1) Intractable back pain: Suspect L1 radiculopathy given lack of alternative pathology found Imaging w/ report L1-L2: There is minimal posterior disc bulge, which abuts the transiting nerve roots. No significant acquired compromise of the central canal is seen. The neural foramina are patent. Suspect patient possibly had not given enough time/rest after initial injury which prompted her to require to come to the hospital. Initially was given dilaudid IV x 2 w/ resultant n/v/flushing/broke out in rash (resolved by the time I saw her) and her daughter had similar reaction w/ dilaudid and was not comfortable going home and required inpatient stay Suspect WBC elevation 2nd to n/v from pain medications in ER. UA did not appear infected. Afebrile Patient reported SIGNIFICANT improvement and back to her usual self with only utilizing tylenol and TWO doses of toradol and was requesting to be discharged home. Discussed w/ supervising provider and had PT evaluate her prior to discharge and given rx for continued PT as outpatient and given short course of toradol PO w/ pepcid BID for reflux symptoms initially reported and resolved with such and to encourage AGAINST any heavy lifting/pulling until back to her usual self and seen in follow up. Possible referral to orthospine as outpatient if any ongoing issues/worsening with therapy but patient had full strength/no further issues prior to dc No shingles rash on exam but can continue to monitor as outpatient if occurs To return to ER if any worsening pain, fevers, or other symptoms concerning for her. (2) Nausea & vomiting: Suspected secondary to pain/opiates, espiecially given similar issues w/ her daughter and she had never received dilaudid before Resolved w/ pepcid and avoidance of narcotics, pain improved on NSAIDs and short course of toradol as above and can continue alternating ibuprofen/tylenol if needed once completed No further vomiting since in ER No further reflux, continued pepcid while on toradol and can use as needed if not having significant issues. No epigastric/abdominal pain during encounter/exam (3) Hypertension: Chronic, stable BP@155/68 in hospital setting on pain control and continued lisinopril (4) Dyslipidemia: Continued atorvastatin Plan discharged w/ PO pain control Rx for continued outpatient physial therapy and outpatient follow up Total Time Total Time Spent Total Time Spent (In Minutes): 35 Discharge Plan Discharge Items Patient Disposition: Home - Self-Care Reason For Visit: INTRACTABLE BACK PAIN Discharge Diagnosis: Lumbar Radiculopathy Goals: You have been hospitalized for an acute medical problem. During your stay at [facility], we have made an effort to correct the problem that brought you to the hospital while keeping you as comfortable as possible. Medications were used to bring your condition under control and your discharge instructions will include directions for any medications you should take after leaving the hospital. Please make sure you see your Primary Care Provider as part of your follow up plan. Activity: As commented below Activity Comment: no heavy lifting/bending, no excessive exercise Lifting: No more than 10 pounds Lifting Comment: until seen by PCP in follow up Non-emergency contact: Primary Care Provider Call non-emergency contact if: you have any medication questions, your symptoms worsen, your pain is not controlled, your pain is worsening and you have a fever Follow-up/Referrals: Leonard Pollard DO [Primary Care Provider] - 11/19/23 11:00 am (APPOINTMENT WITH YASMANY LOPEZ) Diet: Heart Healthy Addtl Attending Provider Instructions: You have been hospitalized for back pain. No evidence for kidney stones or urinary tract infection and could have been from not allowing you to fully recover from initial injury and you should be cautious about any heavy lifting/bending for the next week and are being sent home on oral toradol to help with this discomfort which has been helpful in the hospital as well as pepcid twice daily to prevent any reflux while on this. You can continue to alternate with the Tylenol and muscle relaxants as prescribed by your doctor. Please take over the counter stool softener if any issues with constipation. Prescription has been provided to continue outpatient therapy to help on improving this pain as recommended by physical therapy while evaluated in the hospital. Please follow up with primary care in the next week to monitor your progress. If any ongoing issues in the future he may refer you to orthopedics Please return to the ER if you have any increased/uncontrolled pain, chest pain, shortness of breath, or for any other symptoms concerning for you. Take care! Pending Studies at Discharge: No Stand-Alone Forms: My [facility] Medications and DC Order Prescriptions: New ketorolac 10 mg tablet 10 mg PO Q8H PRN (Reason: pain) Qty: 14 0RF famotidine [Pepcid] 20 mg tablet 20 mg PO BID 10 Days Qty: 20 0RF Continued lisinopril 20 mg tablet 20 mg PO DAILY Qty: 90 3RF albuterol sulfate 90 mcg/actuation HFA aerosol inhaler 2 puff inhalation Q6H PRN (Reason: shortness of breath or wheezing) Qty: 6.7 1RF omega-3 fatty acids 500 mg capsule 500 mg PO DAILY fluticasone propionate [Flonase Allergy Relief] 50 mcg/actuation spray,suspension 2 spray intranasal DAILY PRN (Reason: Allergy Symptoms) Rx Instructions: administer into each nostril olopatadine [Pataday Once Daily Relief] 0.2 % drops 1 drp ophthalmic (eye) QAM PRN (Reason: IRRITATION) cholecalciferol (vitamin D3) 25 mcg (1,000 unit) capsule 25 mcg PO DAILY loratadine 10 mg capsule 10 mg PO DAILY PRN (Reason: Allergy Symptoms) cranberry 500 mg capsule 500 mg PO DAILY Rx Instructions: administer with meals cyclobenzaprine 5 mg tablet 5 mg PO TID PRN (Reason: muscle spasm) Qty: 30 0RF multivitamin [Multiple Vitamins] Tablet 1 tab PO DAILY atorvastatin 10 mg tablet 10 mg PO DAILY Discharge Orders: Discharge Order (Routine); Ordered 11/10/23 Ordered By: Jacqueline Snow Admission Data Admit Date/Time: 11/09/23 16:18 Attending Provider: Bong Garcia Admit Provider: Grupo Hilton Primary Care Provider: Leonard Pollard Other Interventions: Discharge Summary Assessment (RN) Last Done: 11/10/23 11:40 Supervising Physician Co-Signing Physician Notes The patient was not seen by me. The chart was reviewed. Case discussed with JAMEL Saleh. Agree with assessment and plan. She is medically stable for discharge today, November 10 Coding Level of Care Code 70977 INP/OBS DISCH >30 MIN Diagnoses Intractable back pain M54.9 Nausea & vomiting R11.2 Hypertension I10 Dyslipidemia E78.5
== END 2023-11-10 12:32 | disposition home or self-care (01) ==
LOC: ED 07:39 → 3N 07:39 → SUATTDRO 16:18 → 3N 18:09

== ENCOUNTER 2024-06-15 14:44 | Inpatient (IN) ==
[2024-06-15] MEDS: METOPROLOL TARTRATE 1 MG/ML VIAL IV STA (15:51)
--- NOTE | 2024-06-15 15:51 | Emergency Department Note ---
ED Provider Note NAME: RITA SALMERON AGE: 74 SEX: F : 1950 ARRIVES VIA: Walk-In INFORMANT: [Patient][, ] ED PROVIDER(S): [Seun Mariano MD] CHIEF COMPLAINT: [] MEDICAL DECISION MAKING: [] Discussion w/ other healthcare providers: [None] Prior /Outside records reviewed: [none] Differential diagnosis: Benign positional vertigo, dehydration, hypovolemia, anemia, infection, hypoglycemia, electrolyte abnormalities, arrhythmia, tox among others were considered. Diagnostics, as interpreted by me: ECG: A-fib with RVR, rate of 115, normal QRS, normal axis no ST elevations. Cardiac monitoring: An order was placed for continuous cardiac monitoring. The monitor shows a rate of 122 with irregularly irregular and tachycardic rhythm. [Patient was placed on pulse oximetry] Medical decision rules: [none] Imaging studies: [I informally interpreted the patient's chest x-ray does not show obvious pneumonia or pneumothorax with formal report to follow.] [] HPI: Patient presents as a referral due to concern for A-fib noted on outpatient EKG. The patient states that over the last week the patient has had upper respiratory symptoms. Patient reports that she has had some conjunctival irritation nonproductive cough until today when she had discolored sputum. Patient denies any chest pains or shortness of breath. The patient states that she lives with her daughter who also had some similar symptoms and over the weekend she was taking DayQuil and NyQuil. Patient because of her prolonged course of symptoms over the last week to schedule a PCP appointment which time they did do an EKG as the patient was reportedly not sleeping well. They noticed A-fib. Patient denies any fluttering in the chest or palpitations. No chest pains or shortness of breath. Patient has not reported any fever. The patient does feel little anxious with this possible new diagnosis. Patient denies any dizziness or syncope. PAST MEDICAL HISTORY: [See Below] PAST SURGICAL HISTORY: [See Below] SOCIAL HISTORY: [See Below] HOME MEDICATIONS: [See Below] ALLERGIES: [See Below] VITALS: [See Below] PHYSICAL EXAMINATION: GENERAL: NAD, non-toxic. EYE EXAM: Bilateral conjunctival injection without hyphema or hypopyon, no periorbital swelling or proptosis. PERRL, no anisocoria and EOM's grossly intact w/o pain. OROPHARYNX: Moist mucus membranes, grossly normal dentition. NECK: Trachea midline, no stridor. LUNGS: Clear to auscultation. Normal chest wall mechanics. HEART: Irregular irregular and tachycardic, no MRG. ABDOMEN: Abdomen soft, non-tender, no masses, no rebound or guarding. BACK: No CVA TTP. SKIN: No rashes and no bruising. UPPER EXTREMITIES: Upper extremities are grossly normal. LOWER EXTREMITIES: Grossly normal, no edema. NEURO EXAM: A&O x3, cranial nerves II-XII grossly intact, normal speech, moves all 4 extremities. Past Med/Surg History Problem List (Updated 06/15/24 @ 14:42 by Jayda Raman PA-C) Atrial fibrillation with rapid ventricular response Asthma due to seasonal allergies Dyslipidemia Hypertension Osteopenia after menopause (Acute) Medical History Colon cancer screening Mitral valve annular calcification Aortic valve sclerosis Varicose veins of both lower extremities without ulcer or inflammation Intractable back pain Surgical History H/O laparoscopy H/O varicose vein ligation H/O tubal ligation Hx of cholecystectomy H/O section Family History Mother Pancreatic cancer Gallbladder disease Kidney disease Father Cardiac disorder Myocardial infarction Brother Malignant neoplasm of brain Denies family history of Ovarian cancer Prostate cancer Breast cancer Colorectal cancer Social History Smoking Status: Never smoker Second Hand Exposure: No; Do You Dip or Chew Tobacco: No; Hx Alcohol Use: Yes Alcohol type: wine Alcohol Intake Frequency: Monthly or Less Alcohol Intake Frequency Comment: social Hx Substance Use: No Preferred Language: Sami Communication Ability: Effective Visual Impairment: Limited Hearing Ability: Normal Carbon Cutter Required: No marital status: Current Living Situation: Family Current Living Situation Comment: with daughter current occupational status: retired 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, [employer] How many Children do You have: 2 Feels Safe at Home: Yes Childhood Exposure to Second-Hand Smoke: Yes Diet: regular caffeine: Yes Dental Care, Regularly: Yes Physical Activity Frequency: Daily Physical Activity Frequency Comment: walk/gym Seatbelt Use: always Sunscreen Use: Yes Assistive Devices: Glasses Allergies Allergies Allergy/AdvReac Type Severity Reaction Status Date / Time animal dander Allergy Verified 06/15/24 13:51 codeine Allergy Verified 06/15/24 13:51 house dust Allergy Verified 06/15/24 13:51 mold Allergy Verified 06/15/24 13:51 tree and shrub pollen Allergy Verified 06/15/24 13:51 hydromorphone [From Dilaudid] AdvReac Mild Vomiting Verified 06/15/24 13:51 Home Meds Home Medications Medication Instructions Recorded Confirmed loratadine 10 mg capsule 10 mg PO DAILY PRN Allergy Symptoms 04/06/19 06/15/24 cranberry 500 mg capsule 500 mg PO DAILY 05/04/21 06/15/24 omega-3 fatty acids 500 mg capsule 500 mg PO DAILY 09/05/22 06/15/24 multivitamin (Multiple Vitamins 1 tab PO DAILY 04/08/23 06/15/24 tablet) cholecalciferol (vitamin D3) 25 25 mcg PO DAILY 04/17/23 06/15/24 mcg (1,000 unit) capsule fluticasone propionate 50 2 spray intranasal DAILY PRN 04/17/23 06/15/24 mcg/actuation nasal Allergy Symptoms spray,suspension (Flonase Allergy Relief) Previous Rx's Medication Instructions Recorded albuterol sulfate 90 mcg/actuation 2 puff inhalation Q6H PRN 10/17/23 aerosol inhaler shortness of breath or wheezing #6.7 grams scopolamine base 1 mg over 3 days 1 patch transdermal Q3D PRN nausea 01/13/24 transdermal patch and vomiting #4 ea lisinopril 20 mg tablet 20 mg PO DAILY #90 tabs 04/20/24 atorvastatin 10 mg tablet 10 mg PO DAILY #90 tabs 05/05/24 Results & Data (ED) Vital Signs Vital Signs - 24 hr 06/15/24 14:59 06/15/24 15:32 06/15/24 15:32 Temperature 37 C Temperature Source Temporal Artery Scan Pulse Rate 113 H Pulse Rate [Apical] Respiratory Rate 20 Respiratory Effort / Characteristics Non-Labored Spontaneous Respiratory Depth Normal Respiratory Pattern Regular Blood Pressure 155/98 H Blood Pressure [Left Arm] Blood Pressure Mean 117 Blood Pressure Mean [Left Arm] Pulse Oximetry 96 97 97 Oxygen Delivery Method Room Air Room Air Room Air Sepsis Recent Fever Within 48 Hours No Sepsis New/Unexplained Change in Mental Status No Sepsis Action Taken by Nursing No Action Required 06/15/24 15:45 06/15/24 15:51 06/15/24 16:00 Temperature Temperature Source Pulse Rate 107 H 141 H Pulse Rate [Apical] 97 H Respiratory Rate 18 Respiratory Effort / Characteristics Non-Labored Spontaneous Respiratory Depth Normal Respiratory Pattern Regular Blood Pressure 186/155 H Blood Pressure [Left Arm] 170/93 H Blood Pressure Mean Blood Pressure Mean [Left Arm] 118 Pulse Oximetry 98 Oxygen Delivery Method Room Air Sepsis Recent Fever Within 48 Hours Sepsis New/Unexplained Change in Mental Status Sepsis Action Taken by Nursing Laboratory Data 06/15/24 15:15 06/15/24 15:15 Lab Results 06/15/24 Range/Units 15:15 WBC 8.80 (4.8-10.8) K/ul RBC 4.45 (4.20-5.40) M/uL Hgb 13.6 (12.0-16.0) g/dl Hct 40.9 (37.0-47.0) % MCV 91.9 (80.0-100.0) fL MCH 30.6 (25.0-34.0) pg MCHC 33.3 (32.0-36.0) g/dL RDW Std Deviation 40.6 (36.4-46.3) fL RDW Coeff of Yaw 12.0 (11.5-14.5) % Plt Count 283 (130-400) K/uL MPV 9.6 (9.4-12.4) fL Immature Gran % (Auto) 0.8 % Neut % (Auto) 56.9 % Lymph % (Auto) 25.6 % [place] % (Auto) 13.0 % Eos % (Auto) 3.0 % Baso % (Auto) 0.7 % Neut # (Auto) 5.02 (1.40-6.50) K/uL Lymph # (Auto) 2.25 (1.20-3.40) K/uL [place] # (Auto) 1.14 H (0.11-0.59) K/uL Eos # (Auto) 0.26 (0.00-0.50) K/uL Baso # (Auto) 0.06 (0.00-0.20) K/uL Immature Gran # (Auto) 0.07 (0.01-0.20) K/uL PT 10.5 (9.0-12.0) Seconds INR 1.0 (0.9-1.1) APTT 29 (21-31) Seconds PTT Ratio 1.1 Sodium 138 (136-145) mmol/L Potassium 4.4 (3.5-5.1) mmol/L Chloride 103 (98-107) mmol/L Carbon Dioxide 26 (21-32) mmol/L Anion Gap 9 (3-11) BUN 15 (6-23) mg/dl Creatinine 0.87 (0.6-1.2) mg/dl Est Cr Clr Drug Dosing 51.0 ml/min Est GFR ( Amer) 76.1 ml/min Est GFR (Non-Af Amer) 65.6 ml/min BUN/Creatinine Ratio 17.2 (10-20) Glucose 94 (70-99(Fasting)) mg/dl Calcium 9.0 (8.6-10.3) mg/dl Phosphorus 3.4 (2.5-4.9) mg/dl Magnesium 1.8 (1.7-2.4) mg/dl Total Bilirubin 0.3 (0.2-1.0) mg/dl AST 37 (13-39) U/L ALT 45 (7-52) U/L Alkaline Phosphatase 72 (34-104) U/L Troponin I High Sens 9.7 (0-14) pg/ml Total Protein 7.3 (6.0-8.3) gm/dl Albumin 4.0 (3.4-5.0) gm/dl Globulin 3.3 (2.5-4.0) gm/dl Albumin/Globulin Ratio 1.2 (0.9-2) Administered Medications Sodium Chloride (Nss) 1,000 mls @ 999 mls/hr IV .Q1H1M ONE Stop: 06/15/24 16:39 Last Admin: 06/15/24 15:54 Dose: 999 mls/hr Documented By: CLAUDETTE Discontinued Medications Metoprolol Tartrate (Metoprolol Tartrate 1 Mg/Ml Vial) 5 mg IV NOW STA Stop: 06/15/24 15:40 Last Admin: 06/15/24 15:51 Dose: 5 mg Documented By: CLAUDETTE Imaging Data Radiologist's Impression: Chest X-Ray 06/15/24 15:29 XR chest 1V not portable CLINICAL HISTORY: Chest pain, nonspecific. COMPARISON STUDY: Chest radiograph May 04, 2021. FINDINGS: Lung volumes are normal. Lungs are clear. There is no pneumothorax or pleural effusion. Cardiac size is stable. There is mitral annular calcification. Mediastinal contours are normal. There is no evidence for pulmonary edema. IMPRESSION: No acute cardiopulmonary findings. ACT 112: Negative or not required by law. Electronically signed by: Richie Rivero M.D. 06/15/2024 3:58 PM Discharge Plan Visit Data Chief Complaint: Abnormal Labs/Diagnostic Testing Stated Complaint: REF BY DOC, IN A-FIB ED Provider: Seun Mariano Forms Stand Alone Forms: [facility] [employer] Prescriptions Prescriptions: No Action albuterol sulfate 90 mcg/actuation HFA aerosol inhaler 2 puff inhalation Q6H PRN (Reason: shortness of breath or wheezing) Qty: 6.7 1RF scopolamine base 1 mg over 3 days patch 3 day 1 patch transdermal Q3D PRN (Reason: nausea and vomiting) Qty: 4 0RF lisinopril 20 mg tablet 20 mg PO DAILY Qty: 90 3RF atorvastatin 10 mg tablet 10 mg PO DAILY Qty: 90 0RF omega-3 fatty acids 500 mg capsule 500 mg PO DAILY fluticasone propionate [Flonase Allergy Relief] 50 mcg/actuation spray,suspension 2 spray intranasal DAILY PRN (Reason: Allergy Symptoms) Rx Instructions: administer into each nostril cholecalciferol (vitamin D3) 25 mcg (1,000 unit) capsule 25 mcg PO DAILY loratadine 10 mg capsule 10 mg PO DAILY PRN (Reason: Allergy Symptoms) cranberry 500 mg capsule 500 mg PO DAILY Rx Instructions: administer with meals multivitamin [Multiple Vitamins] Tablet 1 tab PO DAILY Referrals Referrals: Leonard Pollard DO [Primary Care Provider] -
[2024-06-15] MEDS: SODIUM CHLORIDE 0.9% 1,000 ML IV ONE ×2 (15:54→17:35)
[2024-06-15 15:56] LABS: Basophils # (auto) 0.06 K/uL (0.00-0.20); Basophils % (auto) 0.7 %; Eosinophils # (auto) 0.26 K/uL (0.00-0.50); Hematocrit (blood only) 40.9 % (37.0-47.0); Hemoglobin 13.6 g/dl (12.0-16.0); Immature Granulocytes # (auto) 0.07 K/uL (0.01-0.20); Immature Granulocytes % (auto) 0.8 %; Lymphocytes # (auto) 2.25 K/uL (1.20-3.40); Lymphocytes % (auto) 25.6 %; Mean Corpuscular Hemoglobin 30.6 pg (25.0-34.0); Mean Corpuscular Hgb Conc 33.3 g/dL (32.0-36.0); Mean Corpuscular Volume 91.9 fL (80.0-100.0); Mean Platelet Volume 9.6 fL (9.4-12.4); Monocytes # (auto) 1.14 K/uL (0.11-0.59); Neutrophils # (auto) 5.02 K/uL (1.40-6.50); Neutrophils % (auto) 56.9 %; Platelet Count 283 K/uL (130-400); RDW Standard Deviation 40.6 fL (36.4-46.3); Red Blood Count 4.45 M/uL (4.20-5.40)
--- NOTE | 2024-06-15 15:59 | XRay Report ---
XR chest 1V not portable CLINICAL HISTORY: Chest pain, nonspecific. COMPARISON STUDY: Chest radiograph May 04, 2021. FINDINGS: Lung volumes are normal. Lungs are clear. There is no pneumothorax or pleural effusion. Car diac size is stable. There is mitral annular calcification. Mediastinal contours are normal. There is no evidence for pulmonary edema. IMPRESSION: No acute cardiopulmonary findings. ACT 112: Negative or not required by law. Electronically signed by: Richie Rivero M.D. 06/15/2024 3:58 PM
[2024-06-15 16:15] LABS: Albumin Globulin Ratio 1.2 (0.9-2); BUN Creatinine Ratio 17.2 (10-20); Bilirubin,Total 0.3 mg/dl (0.2-1.0); Est GFR (African American) 76.1 ml/min; Est GFR (Non-African American) 65.6 ml/min; Globulin 3.3 gm/dl (2.5-4.0); Magnesium 1.8 mg/dl (1.7-2.4); Phosphorus 3.4 mg/dl (2.5-4.9); Potassium 4.4 mmol/L (3.5-5.1); Total Protein 7.3 gm/dl (6.0-8.3)
[2024-06-15 16:20] LABS: Troponin I High Sensitivity 9.7 pg/ml (0-14)
[2024-06-15 16:24] LABS: Partial Thromboplastin Ratio 1.1; Partial Thromboplastin Time 29 Seconds (21-31); Prothrombin Time 10.5 Seconds (9.0-12.0)
[2024-06-15] MEDS ORDERED: Heparin IV Adult Wt-Based Low-Dose *NO* INITIAL Bolus Protocol IV STA (16:49)
[2024-06-15] MEDS: BENZONATATE 100 MG CAPSULE PO ONE (17:34)
--- NOTE | 2024-06-15 17:34 | History & Physical Report ---
Date of Service June 15, 2024 Assessment & Plan (1) Atrial fibrillation with rapid ventricular response: Plan: Admit to the PCU on telemetry in case patient needs ongoing IV medications for rate control/rhythm Present to the ED from her PCPs office after being found to be in new onset atrial fibrillation with RVR Heart rate was noted to be in the 140s on arrival, patient was asymptomatic Potassium stable at 4.4, mag of 1.8 Will add TSH with reflex free T4 if needed Chest x-ray without acute findings Suspect otology is increased cardiac demand from acute viral illness Will obtain TTE tomorrow for further evaluation Agree with starting heparin drip at this time due to [id number] score of 3 with no previous history of major bleeding If patient remains stable on heparin drip overnight can start p.o. anticoagulation tomorrow Will start p.o. metoprolol titrate at 25 mg daily Continue as needed IV Lopressor for heart rate sustained greater than 120 with max of 2 doses for now Heparin drip for DVT prophylaxis Heart healthy diet AM CBC, CMP, mag, PT/INR (2) Symptoms of upper respiratory infection (URI): Plan: Patient has been experiencing nonproductive cough, sore throat, congestion for the past week Underwent COVID-19 screen in the outpatient setting prior to arrival which was negative Will follow full respiratory BioFire obtained in the ED which is currently pending Chest x-ray is negative for acute findings Symptomatic care for now with incentive spirometry, as needed guaifenesin/dextromethorphan Holding albuterol at this time as patient is without wheezing and high risk for exacerbation of A-fib RVR with albuterol use (3) Conjunctivitis: Plan: Patient woke this a.m. with her bilateral eyes crusted shut Noted to have bilateral conjunctival erythema without signs of discharge or drainage to suggest bacterial conjunctivitis Suspect patient has viral conjunctivitis from recent URI Denies vision changes or significant eye discomfort at this time Received 1 dose of bacitracin/polymyxin B eye ointment in the ED For now we will continue with as needed artificial tears for irritation/dryness Will follow full respiratory BioFire (4) Hypertension: Plan: Currently stable Continue home lisinopril Plan The patient was discussed with Dr. Gill at time of the admission History of Present Illness Chief Complaint: New onset A-fib RVR, URI symptoms Primary Care Provider: Leonard Pollard DO [place] is a 74-year-old female with a past medical history significant for hyperlipidemia, hypertension who presented to [facility] ED on 06/15/2024 from PCP's office due to new onset A-fib RVR and URI symptoms. On arrival to the ED the patient was noted to be in A-fib RVR with heart rate in the 140s and hypertension at 186/155 but otherwise stable. Labs including CBC, CMP, high-sensitivity troponin, and SARS-CoV-2 screen were unremarkable. Chest x-ray was read as negative for acute findings. EKG shows A-fib with RVR heart rate in the 140s but without acute ST or T wave changes. Prior to admission the patient was given a total of 2 L NSS, 1 dose of 5 mg IV metoprolol tartrate, Tessalon Perles, and started on bacitracin/polymyxin sulfate eyedrops for possible pinkeye. Due to a [id number] score of 3 the patient was started on a heparin drip prior to admission. Patient was sitting in bed in no acute distress at time of exam. She explains that she started develop a sore throat, congestion, and a nonproductive cough proximal 1 week ago. This a.m. she woke with both eyes initially crusted shut. Because of the symptoms she made appoint with her PCP today. Denies recent fever/chills, chest pain, palpitations, shortness of breath, hemoptysis, nausea/vomiting, abdominal pain, dysuria/hematuria, diarrhea, lower extremity swelling, and recent trauma. States that her eyes are mildly irritated but are without discharge or drainage since initially waking. States she was surprised to hear that she was in new onset atrial fibrillation with a fast heart rate yes she was not experiencing chest discomfort, palpitations, lightheadedness/dizziness. Confirms that she does not have a history of major bleeding and being in agreement with ongoing anticoagulation with her [id number]- VASc score 3. She wishes to be a full code and for her children to make medical decisions for her if she cannot become herself. Please refer to Dr. Gill's attestation for any changes to treatment plan Allergies Allergy/AdvReac Type Severity Reaction Status Date / Time animal dander Allergy Verified 06/15/24 13:51 codeine Allergy Verified 06/15/24 13:51 house dust Allergy Verified 06/15/24 13:51 mold Allergy Verified 06/15/24 13:51 tree and shrub pollen Allergy Verified 06/15/24 13:51 hydromorphone [From Dilaudid] AdvReac Mild Vomiting Verified 06/15/24 13:51 Home Medications Medication Instructions Recorded Confirmed Type loratadine 10 mg capsule 10 mg PO DAILY PRN Allergy Symptoms 04/06/19 06/15/24 History cranberry 500 mg capsule 500 mg PO DAILY 05/04/21 06/15/24 History omega-3 fatty acids 500 mg capsule 500 mg PO DAILY 09/05/22 06/15/24 History multivitamin (Multiple Vitamins 1 tab PO DAILY 04/08/23 06/15/24 History tablet) cholecalciferol (vitamin D3) 25 25 mcg PO DAILY 04/17/23 06/15/24 History mcg (1,000 unit) capsule fluticasone propionate 50 2 spray intranasal DAILY PRN 04/17/23 06/15/24 History mcg/actuation nasal Allergy Symptoms spray,suspension (Flonase Allergy Relief) albuterol sulfate 90 mcg/actuation 2 puff inhalation Q6H PRN 10/17/23 06/15/24 Rx aerosol inhaler shortness of breath or wheezing #6.7 grams scopolamine base 1 mg over 3 days 1 patch transdermal Q3D PRN nausea 01/13/24 06/15/24 Rx transdermal patch and vomiting #4 ea lisinopril 20 mg tablet 20 mg PO DAILY #90 tabs 04/20/24 06/15/24 Rx atorvastatin 10 mg tablet 10 mg PO DAILY #90 tabs 05/05/24 06/15/24 Rx Past Med/Surg History Problem List (Updated 06/15/24 @ 18:14 by Jaime Ortiz PA-C) Conjunctivitis Symptoms of upper respiratory infection (URI) Atrial fibrillation with rapid ventricular response Asthma due to seasonal allergies Dyslipidemia Hypertension Osteopenia after menopause (Acute) Medical History Colon cancer screening Mitral valve annular calcification Aortic valve sclerosis Varicose veins of both lower extremities without ulcer or inflammation Intractable back pain Surgical History H/O laparoscopy H/O varicose vein ligation H/O tubal ligation Hx of cholecystectomy H/O section Family History Mother Pancreatic cancer Gallbladder disease Kidney disease Father Cardiac disorder Myocardial infarction Brother Malignant neoplasm of brain Denies family history of Ovarian cancer Prostate cancer Breast cancer Colorectal cancer Social History Smoking Status: Never smoker Second Hand Exposure: No; Do You Dip or Chew Tobacco: No; Hx Alcohol Use: Yes Alcohol type: wine Alcohol Intake Frequency: Monthly or Less Alcohol Intake Frequency Comment: social Hx Substance Use: No Preferred Language: Barbadian Communication Ability: Effective Visual Impairment: Limited Hearing Ability: Normal E Commerce Marketing Analyst Required: No marital status: Current Living Situation: Family Current Living Situation Comment: with daughter current occupational status: retired 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[employer], [employer] [facility] How many Children do You have: 2 Feels Safe at Home: Yes Childhood Exposure to Second-Hand Smoke: Yes Diet: regular caffeine: Yes Dental Care, Regularly: Yes Physical Activity Frequency: Daily Physical Activity Frequency Comment: walk/gym Seatbelt Use: always Sunscreen Use: Yes Assistive Devices: Glasses Physical Exam Physical Exam: Physical Exam: General: In no acute distress, stated age, well-nourished, non-toxic appearing HEENT: Normocephalic, atraumatic, no scleral icterus, patient with bilateral conjunctival erythema but is without signs of discharge or drainage, pupils are round, symmetrical, and reactive to light, moist mucus membranes, no significant oropharyngeal erythema Chest/Pulm: No respiratory distress, symmetrical chest expansion, clear breath sounds throughout Cardiac: Irregular rate and rhythm, no murmurs noted Abdomen: Negative for ascites and bruising, normoactive bowel sounds, soft, non-tender to palpation throughout Musculoskeletal: Symmetrical and without signs of acute trauma, upper and lower extremities with full ROM, no atrophy, spasticity, or flaccidity Extremities: Radial, dorsalis pedis, and posterior tibial pulses are intact and symmetrical, no edema noted in the BL LE's Skin: Warm, dry, no rashes , lesions, or scars noted Neuro: Alert and oriented to person, place, month, year, and president, no focal defects, no tremors noted Psych: No acute distress, calm and cooperative during the exam Results & Data Results & Data Vital Signs (Past 12 Hours) Vital Signs Temp Pulse Pulse Resp BP BP Pulse Ox 06/15/24 16:00 97 H 18 170/93 H 98 06/15/24 15:51 141 H 186/155 H 06/15/24 15:45 107 H 06/15/24 15:32 97 06/15/24 15:32 97 06/15/24 14:59 37 C 113 H 20 155/98 H 96 O2 Del Method 06/15/24 16:00 Room Air 06/15/24 15:51 06/15/24 15:45 06/15/24 15:32 Room Air 06/15/24 15:32 Room Air 06/15/24 14:59 Room Air Laboratory Results Abnormal lab results 06/15/24 Range/Units 15:15 [place] # (Auto) 1.14 H (0.11-0.59) K/uL Diagnostic Findings Chest X-Ray 06/15/24 15:29 XR chest 1V not portable CLINICAL HISTORY: Chest pain, nonspecific. COMPARISON STUDY: Chest radiograph May 04, 2021. FINDINGS: Lung volumes are normal. Lungs are clear. There is no pneumothorax or pleural effusion. Cardiac size is stable. There is mitral annular calcification. Mediastinal contours are normal. There is no evidence for pulmonary edema. IMPRESSION: No acute cardiopulmonary findings. ACT 112: Negative or not required by law. Electronically signed by: Richie Rivero M.D. 06/15/2024 3:58 PM Code Status & VTE Plan Code Status Full code VTE Prophylaxis Plan VTE Prophylaxis will be ordered: Yes Supervising Physician Co-Signing Physician Notes Patient seen and examined, chart reviewed, case discussed with Jaime Ortiz PA-C and I agree with the assessment and plan as above except as otherwise noted Labs and images reviewed 74-year-old female who presents with URI symptoms and new onset A-fib RVR. Rate improved with metoprolol. She was started on heparin gtt. while in the ER. Suspect viral induced stress, new A-fib. Chest x-ray is without acute findings and no evidence of pulmonary edema/rate related failure. Patient was recommended for admission due to her RVR. She is started on metoprolol. Increased [id number] warranting anticoagulation, on recess benefits discussion will transition to Eliquis in the morning. Will start on metoprolol 25 mg tartrate twice daily, consolidate to succinate once requirements are stable. Metoprolol IV as needed on-call. Agree with above PG Care Time/CCT Total # of Minutes Spent Total Time Spent with Patient: Total time spent is greater than 50% in coordination of care (as documented) at patient's floor/unit and/or counseling patient: Coding [place] [address] INT INP/OBS CARE 3/75MIN Patient Type Established Medical Decision Making High Complexity Diagnoses Atrial fibrillation with rapid ventricular response I48.91 Symptoms of upper respiratory infection (URI) R09.89 Conjunctivitis H10.9 Hypertension I10
[2024-06-15] MEDS: BACITRACIN/POLYMYX B OPH OINT 3.5 GM TUBE OP STA (17:36)
[2024-06-15] MEDS: HEPARIN SODIUM/DEXTROSE 25,000 UNITS/500 ML BAG IV SCH (17:51)
[2024-06-15] MEDS ORDERED: METOPROLOL TARTRATE 1 MG/ML VIAL IV PRN (18:04)
[2024-06-15] MEDS ORDERED: ARTIFICIAL TEARS OPB PRN (18:05)
[2024-06-15] MEDS: MAGNESIUM SULFATE / D5W 1 GM/100 ML BAG IV SCH (18:09)
[2024-06-15] MEDS: guaiFENesin/DEXTROM SYRUP 200MG/20MG 10ML UDC PO STA (18:41)
--- NOTE | 2024-06-15 18:48 | Electrocardiogram Report ---
Test Reason : Blood Pressure : */* mmHG Vent. Rate : 115 BPM Atrial Rate : * BPM P-R Int : * ms QRS Dur : 76 ms QT Int : 310 ms P-R-T Axes : * 78 35 degrees QTcB Int : 428 ms Atrial fibrillation with rapid ventricular response with premature ventricular or aberrantly conducte d complexes Abnormal ECG When compared with ECG of 09-Nov-2023 17:36, Atrial fibrillation has replaced Sinus rhythm Confirmed by Rigoberto Man ([id number]) on 06/15/2024 6:48:08 PM Referred By: Confirmed By: Rigoberto Man
[2024-06-15 18:55] LABS: Thyroid Stimulating Hormone 2.415 uIu/ml (0.300-4.500)
[2024-06-15 18:57] LABS: Adenovirus PCR Not Detected (NotDetected); Bordetella parapertussis PCR Not Detected (NotDetected); Bordetella pertussis PCR Not Detected (NotDetected); Chlamydia pneumoniae PCR Not Detected (NotDetected); Coronavirus 229E PCR Not Detected (NotDetected); Coronavirus CoV-2 (COVID19)PCR Not Detected (NotDetected); Coronavirus HKU1 PCR Not Detected (NotDetected); Coronavirus NL63 PCR Not Detected (NotDetected); Coronavirus OC43PCR Not Detected (NotDetected); Human Metapneumovirus PCR Not Detected (NotDetected); Influenza A PCR Not Detected (NotDetected); Influenza B PCR Not Detected (NotDetected); Mycoplasma pneumoniae PCR Not Detected (NotDetected); Parainfluenza Virus 1 PCR Not Detected (NotDetected); Parainfluenza Virus 2 PCR Not Detected (NotDetected); Parainfluenza Virus 3 PCR Not Detected (NotDetected); Parainfluenza Virus 4 PCR Not Detected (NotDetected); Respiratory Syncytial VirusPCR Not Detected (NotDetected); Rhinovirus/Enterovirus PCR DETECTED (NotDetected)
[2024-06-15] MEDS: METOPROLOL TARTRATE 25 MG TAB PO STA (19:39)
[2024-06-16] MEDS: guaiFENesin/DEXTROM SYRUP 200MG/20MG 10ML UDC PO PRN (00:10)
[2024-06-16 00:46] LABS: ANTI-Xa, UFH(UnfractionatedHep < 0.10 IU/ml (0.3-0.7)
[2024-06-16] MEDS: HEPARIN SOD (PORCINE) 1000 UNIT/ML IV ONE (02:00)
[2024-06-16 08:05] LABS: Hematocrit (blood only) 37.6 % (37.0-47.0); Hemoglobin 12.7 g/dl (12.0-16.0); Mean Corpuscular Hemoglobin 30.5 pg (25.0-34.0); Mean Corpuscular Hgb Conc 33.8 g/dL (32.0-36.0); Mean Corpuscular Volume 90.2 fL (80.0-100.0); Mean Platelet Volume 9.4 fL (9.4-12.4); Platelet Count 264 K/uL (130-400); RDW Coefficient of Variation 11.8 % (11.5-14.5); Red Blood Count 4.17 M/uL (4.20-5.40); White Blood Count 7.82 K/ul (4.8-10.8)
[2024-06-16 08:22] LABS: BUN Creatinine Ratio 13.9 (10-20); Calcium 8.4 mg/dl (8.6-10.3); Creatinine Clr Calc Pharmacy 71.6 ml/min; Est GFR (African American) 95.6 ml/min; Est GFR (Non-African American) 82.5 ml/min; Magnesium 1.9 mg/dl (1.7-2.4); Potassium 3.6 mmol/L (3.5-5.1)
[2024-06-16 08:27] LABS: ANTI-Xa, UFH(UnfractionatedHep 0.49 IU/ml (0.3-0.7)
[2024-06-16 08:33] LABS: Prothrombin Time 10.8 Seconds (9.0-12.0)
[2024-06-16] MEDS: ACETAMINOPHEN 325 MG TAB PO PRN (09:10)
[2024-06-16] MEDS: APIXABAN 5 MG TABLET PO SCH (09:11)
[2024-06-16] MEDS: lisinopril 20 MG TAB PO SCH (09:11)
[2024-06-16] MEDS: METOPROLOL TARTRATE 25 MG TAB PO SCH (09:11)
[2024-06-16] MEDS: STOP HEPARIN ORDER ONE (09:12)
[2024-06-16] MEDS: ATORVASTATIN 10 MG TAB PO SCH (09:18)
[2024-06-16 11:02] VITALS: BP 111/70; PULSE 60; RESP 16; TEMP 97.5; O2SAT 97
--- NOTE | 2024-06-16 11:19 | Cardiology Consultation ---
Date of Consultation June 16, 2024 Assessment & Plan (1) Paroxysmal A-fib: (2) Symptoms of upper respiratory infection (URI): (3) Hypertension: Plan Generally healthy 74-year-old woman with incidentally noted, asymptomatic atrial fibrillation occurring in the context of a current viral upper respiratory tract infection. No evidence of myocardial ischemia, major valvular disease, or congestive heart failure. Discussed with the patient in detail pathophysiology and management of atrial fibrillation. Agree with metoprolol, would change to long-acting agent, metoprolol succinate 25 mg daily (she has metoprolol tartrate 25 mg twice daily ordered but did not receive her p.m. dose due to mild hypotension). BP has been labile, but given some episodes of mild hypotension would hold lisinopril and discharge off this medication, to be resumed as outpatient if/when BP rises. Agree with apixaban 5 mg twice daily given her [id number] score of 3 (gender, age, HTN). Okay from discharge from a cardiac standpoint. I will arrange for cardiology follow-up with me in 3 to 4 weeks. History of Present Illness Reason for Consultation: paroxysmal afib Requesting Physician: Italia Dixon MD Attending Physician: Italia Dixon MD History of Present Illness 74-year-old generally healthy woman with hypertension, no cardiac history, incidentally found to have atrial fibrillation with rapid ventricular response when seeking treatment for viral URI. She was seen in her primary care provider's office 06/15/2018 and noted to have new onset atrial fibrillation, she was sent to the ER where she was given IV metoprolol and normal saline, admitted to telemetry, converted spontaneously to sinus rhythm around 7:30 AM this morning. She had no cardiac symptoms at a [facility], noting no subjective palpitations, chest discomfort, dyspnea, or lightheadedness. She has had several days of viral URI symptoms including a nonproductive cough, rhinorrhea, ocular discharge with "pink eye" which she has been managing with [id number] medications. She has no history of major bleeding problems, but does note that she "bruises easily". At the time my evaluation this morning, she had no somatic complaints aside from a nonproductive cough. Allergies Allergy/AdvReac Type Severity Reaction Status Date / Time animal dander Allergy Verified 06/15/24 13:51 codeine Allergy Verified 06/15/24 13:51 house dust Allergy Verified 06/15/24 13:51 mold Allergy Verified 06/15/24 13:51 tree and shrub pollen Allergy Verified 06/15/24 13:51 hydromorphone [From Dilaudid] AdvReac Mild Vomiting Verified 06/15/24 13:51 Home Medications Medication Instructions Recorded Confirmed Type loratadine 10 mg capsule 10 mg PO DAILY PRN Allergy Symptoms 04/06/19 06/15/24 History cranberry 500 mg capsule 500 mg PO DAILY 05/04/21 06/15/24 History omega-3 fatty acids 500 mg capsule 500 mg PO DAILY 09/05/22 06/15/24 History multivitamin (Multiple Vitamins 1 tab PO DAILY 04/08/23 06/15/24 History tablet) cholecalciferol (vitamin D3) 25 25 mcg PO DAILY 04/17/23 06/15/24 History mcg (1,000 unit) capsule fluticasone propionate 50 2 spray intranasal DAILY PRN 04/17/23 06/15/24 History mcg/actuation nasal Allergy Symptoms spray,suspension (Flonase Allergy Relief) albuterol sulfate 90 mcg/actuation 2 puff inhalation Q6H PRN 10/17/23 06/15/24 Rx aerosol inhaler shortness of breath or wheezing #6.7 grams scopolamine base 1 mg over 3 days 1 patch transdermal Q3D PRN nausea 01/13/24 06/15/24 Rx transdermal patch and vomiting #4 ea lisinopril 20 mg tablet 20 mg PO DAILY #90 tabs 04/20/24 06/15/24 Rx atorvastatin 10 mg tablet 10 mg PO DAILY #90 tabs 05/05/24 06/15/24 Rx Patient History Medical History Colon cancer screening 09/2023 Repeat 3 yrs Mitral valve annular calcification moderate, echocardiogram April 2021 Aortic valve sclerosis no significant stenosis. Echo April 2021 Varicose veins of both lower extremities without ulcer or inflammation Intractable back pain Surgical History H/O laparoscopy H/O varicose vein ligation H/O tubal ligation left leg, 1991 Hx of cholecystectomy 2004 H/O section 1975 Family History Mother Pancreatic cancer Gallbladder disease Kidney disease Father Cardiac disorder Myocardial infarction Brother Malignant neoplasm of brain Denies family history of Ovarian cancer Prostate cancer Breast cancer Colorectal cancer Social History Smoking Status: Never smoker Second Hand Exposure: No; Do You Dip or Chew Tobacco: No; Tobacco Cessation Education Requested by Patient: No Hx Alcohol Use: Yes Alcohol type: wine Alcohol Intake Frequency: Monthly or Less Alcohol Intake Frequency Comment: social Hx Substance Use: No Preferred Language: Polish Communication Ability: Effective Visual Impairment: Limited Hearing Ability: Normal 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 Beliefs That Will Affect Care: None marital status: Current Living Situation: Family Current Living Situation Comment: Lives with her daughter (Riana) current occupational status: retired 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 BMI 27. Afebrile. BP 111/70 mmHg. Pulse 60 bpm and regular. Respirations 16 and unlabored. Skin: no ecchymoses or generalized lesions. HEENT: unremarkable. Neck: JVP at the clavicle at 90 degrees, no carotid bruits. Lungs: clear. No wheezing on forced exhalation. Cardiac: regular rhythm, normal S1-2, no murmur. Abdomen: benign. Extremities: no edema, pulses intact. Neurologic: normal affect and conversation, nonfocal. Results & Data Vital Signs (Past 12 Hours) Vital Signs Temp Pulse Pulse Resp BP BP Pulse Ox 06/16/24 11:01 97.5 F L 60 16 111/70 97 06/16/24 07:50 97.7 F 75 18 120/76 96 06/16/24 02:21 97.9 F 90 22 133/77 96 06/15/24 23:16 117 H O2 Del Method 06/16/24 11:01 Room Air 06/16/24 07:50 Room Air 06/16/24 02:21 Room Air 06/15/24 23:16 Laboratory Results Troponin 9.7. Normal CBC. Normal electrolytes with potassium 3.6 and magnesium 1.8. Creatinine 0.72. CK1 17. LDL 54. TSH normal. Diagnostic Findings ECG on admission showed atrial fibrillation with ventricular rate 115 bpm, otherwise unremarkable. Compared with 11/09/2023 ECG, atrial fibrillation had replaced sinus rhythm. Chest x-ray unremarkable. Echocardiogram showed normal LV systolic function and wall motion, mild LVH, mild to moderate mitral annular calcification with mild mitral regurgitation, normal RVSP. Compared with 2020 study, LVH now seen, otherwise no significant change. PG Care Time/CCT Total # of Minutes Spent Total Time Spent with Patient: Total time spent is greater than 50% in coordination of care (as documented) at patient's floor/unit and/or counseling patient: Coding Level of Care Code 68521 INT INP/OBS CARE 2/55MIN Diagnoses Paroxysmal A-fib I48.0 Symptoms of upper respiratory infection (URI) R09.89 Hypertension I10
--- NOTE | 2024-06-16 11:24 | XCELERA ---
[id number] [id number]
--- NOTE | 2024-06-16 11:56 | Discharge Summary ---
Date of Service June 16, 2024 Admission HPI Per Admitting Provider Krystle is a 74-year-old female with a past medical history significant for hyperlipidemia, hypertension who presented to [facility] ED on 06/15/2024 from PCP's office due to new onset A-fib RVR and URI symptoms. On arrival to the ED the patient was noted to be in A-fib RVR with heart rate in the 140s and hypertension at 186/155 but otherwise stable. Labs including CBC, CMP, high-sensitivity troponin, and SARS-CoV-2 screen were unremarkable. Chest x-ray was read as negative for acute findings. EKG shows A-fib with RVR heart rate in the 140s but without acute ST or T wave changes. Prior to admission the patient was given a total of 2 L NSS, 1 dose of 5 mg IV metoprolol tartrate, Tessalon Perles, and started on bacitracin/polymyxin sulfate eyedrops for possible pinkeye. Due to a [id number]-[id number] score of 3 the patient was started on a heparin drip prior to admission. Patient was sitting in bed in no acute distress at time of exam. She explains that she started develop a sore throat, congestion, and a nonproductive cough proximal 1 week ago. This a.m. she woke with both eyes initially crusted shut. Because of the symptoms she made appoint with her PCP today. Denies recent fever/chills, chest pain, palpitations, shortness of breath, hemoptysis, nausea/vomiting, abdominal pain, dysuria/hematuria, diarrhea, lower extremity swelling, and recent trauma. States that her eyes are mildly irritated but are without discharge or drainage since initially waking. States she was surprised to hear that she was in new onset atrial fibrillation with a fast heart rate yes she was not experiencing chest discomfort, palpitations, lightheadedness/dizziness. Confirms that she does not have a history of major bleeding and being in agreement with ongoing anticoagulation with her [id number]- VASc score 3. She wishes to be a full code and for her children to make medical decisions for her if she cannot become herself. Admission Exam (Per Admitting) Constitutional The patient is awake, alert and oriented 3, well developed and well nourished, normocephalic and atraumatic, lying in bed and in no acute distress. HEENT--PERRL, EOMI, mucous membranes and oropharynx mildly dry Neck--supple. No JVD. No bruits. Thyroid normal, trachea midline, no adenopathy. Heart--normal S1 and S2. No murmurs, rubs or gallops. Lungs--clear bilaterally, no respiratory distress, no accessory muscle use. Abdomen--normal bowel sounds and soft. Extremities--no cyanosis or clubbing. No edema. Dermatologic--normal skin turgor, normal color, no abnormal lymph nodes, no rash. Neurologic--cranial nerves II through XII grossly intact. Rheumatologic--normal range of motion. Psychiatric--normal affect. Discharge Data Consultations 06/15/24 16:48 ED Decision to Admit Stat 06/16/24 10:14 Consult Cardiology Routine Hospital Course (1) Atrial fibrillation with rapid ventricular response: Admit to the PCU on telemetry in case patient needs ongoing IV medications for rate control/rhythm Present to the ED from her PCPs office after being found to be in new onset atrial fibrillation with RVR Heart rate was noted to be in the 140s on arrival, patient was asymptomatic Potassium stable at 4.4, mag of 1.8 started on heparin -Evaluated by cardiology -Now transitioned to PO Apixaban 5mg BID -Discharge on PO metoprolol succunate 25mg daily -ECHO showed presevrevd EF --Plan is outpatient follow up with cardiology (2) Symptoms of upper respiratory infection (URI): Patient has been experiencing nonproductive cough, sore throat, congestion for the past week Underwent COVID-19 screen in the outpatient setting prior to arrival which was negative Will follow full respiratory BioFire obtained in the ED which is currently pending Chest x-ray is negative for acute findings Symptomatic care for now with incentive spirometry, as needed guaifenesin/dextromethorphan Holding albuterol at this time as patient is without wheezing and high risk for exacerbation of A-fib RVR with albuterol use (3) Conjunctivitis: Patient woke this a.m. with her bilateral eyes crusted shut Noted to have bilateral conjunctival erythema without signs of discharge or drainage to suggest bacterial conjunctivitis Suspect patient has viral conjunctivitis from recent URI Denies vision changes or significant eye discomfort at this time Received 1 dose of bacitracin/polymyxin B eye ointment in the ED For now we will continue with as needed artificial tears for irritation/dryness Will follow full respiratory BioFire (4) Hypertension: Currently stable hold home lisinopril Plan d/c home Coding Level of Care Code 27578 INP/OBS DISCH >30 MIN Diagnoses Atrial fibrillation with rapid ventricular response I48.91 Symptoms of upper respiratory infection (URI) R09.89 Conjunctivitis H10.9 Hypertension I10 Time Spent (min) 35
== END 2024-06-16 13:51 | disposition home or self-care (01) | DRG 310 ==
LOC: ED 14:44 → 4W 17:46 → SUATTDRO 17:46 → 4W 20:50